=== PATIENT | female | born 1945 | race Caucasian/White ===

== ENCOUNTER 2019-04-03 22:00 | Inpatient (IN) | payer MEDICARE, OTHER ==
[2019-04-04] MEDS ORDERED: Maalox 30 mL Cup PO PRN (05:01)
[2019-04-04] MEDS ORDERED: Magnesium Hydroxide (MOM) 30 mL UDC PO PRN ×2 (05:01→07:57)
[2019-04-04] MEDS ORDERED: POLYETHYLENE GLYCOL 3350 17 GM PACK PO PRN (07:57)
--- NOTE | 2019-04-04 08:53 | History & Physical ---
ADMIT DATE: 04/04/2019 CHIEF COMPLAINT: Psychosis and paranoia. HISTORY OF PRESENT ILLNESS: This is a 74-year-old female who was living in an assisted living facility and then transferred to [facility] for medical clearance. Per report, the patient has increased agitation and psychosis with ongoing auditory hallucinations and paranoid delusions. Per paperwork, the patient is currently receiving antibiotics for urinary tract infection in assisted living facility. Once medically cleared from [facility], the patient was given respirations for ciprofloxacin 500 mg twice a day for 10 days. Hence once medically stable, the patient was transferred to [facility] for further psychiatric management. REVIEW OF SYSTEMS: GENERAL: This is a 74-year-old female. No fever. No weakness. HEAD: No headache. No dizziness. EYES: No eye pain or blurring of vision. NECK: No neck pain or nuchal rigidity. CHEST: No chest pain or palpitation. PULMONARY: No coughing. No shortness of breath. GASTROINTESTINAL: No abdominal. No constipation. No diarrhea. MUSCULOSKELETAL: No joint pain. No muscle pain. SOCIAL HISTORY: The patient lived in assisted living facility prior to hospitalization. FAMILY HISTORY: Unremarkable. PAST SURGICAL HISTORY: Unremarkable. PAST MEDICAL HISTORY: Includes hypertension, diabetes. PSYCHIATRIC HISTORY: Includes possible schizophrenia. PHYSICAL EXAMINATION: VITAL SIGNS: Temperature 97, heart rate 70, blood pressure 130/75, respirations 20, 96% on room air. GENERAL: This is a 74-year-old female who appears as stated, in no acute distress. HEENT: Head is atraumatic and normocephalic. Eyes: Bilateral conjunctivae are clear. Bilateral pupils are equally round and reactive. NECK: Supple. No JVD. CARDIOVASCULAR: S1 and S2, without murmur. LUNGS: Clear to auscultation. GASTROINTESTINAL: Soft and nontender without guarding. Positive bowel sounds. MUSCULOSKELETAL: No clubbing. No cyanosis noted. ASSESSMENT: 1. Schizophrenia. 2. Hypertension. 3. Diabetes. PLAN: We will admit the patient to Psychiatric Unit. We will follow up with psychiatrist to monitor the patient's condition and behavior. We will do medication reconciliation accordingly. We will continue ciprofloxacin 500 mg x 10 days twice a day for urinary tract infection. We will do local skin care. Treatment plans were discussed with the patient's nurse. Treatment plans were discussed with Dr. Schuster. JOB# [id number]
[2019-04-04] MEDS: Multivitamin Tab PO SCH (10:08)
[2019-04-04] MEDS: Lactobacillus Rhamnosus GG 15 Billion CFU CAP.SPRINK PO SCH (12:26)
[2019-04-04] MEDS: INSULIN LISPRO SLIDING SCALE 100 UNITS/ML UNIT SUBQ SCH ×3 (12:37→21:44)
--- NOTE | 2019-04-04 13:56 | History & Physical ---
ADMIT DATE: 04/04/2019 IDENTIFYING INFORMATION: The patient is 74 years old female. HISTORY OF PRESENT ILLNESS: The patient was admitted after being transferred from [facility]. She is living in an assisted living facility and then transferred to [facility] . She has increased agitation, psychosis, ongoing auditory hallucinations and paranoia. The patient was receiving antibiotic for urinary tract infection in the assisted living. The patient was given treatment for Cipro. When I talked to her, she was very pleasant and cooperative. 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 She said "I'm in a special home." She is not sure why. She said she is here to regulate her medication. She reports she cannot move or walk. She believes this is 04/07/1999. She is somewhat confused. She has been feeling down and depressed. She says she saw a psychiatrist a long time go after her brother back in 2007. She denies prior suicide attempt. She said that she is on medication for depression. She says she takes Nardil given by a psychiatrist. She is not sure what the name of the psychiatrist. She said she has not been sleeping well, decreased appetite. She lost 103 pounds in 4-5 months. She currently weighs 227 pounds. She is able to remember the president being Juany before him. She denies any current intent to harm herself or anyone. She denies any auditory or visual hallucinations. She is very pleasant and cooperative. MEDICATIONS: The patient is currently on Risperdal 1 mg twice a day ordered by Dr. Hills. MEDICAL HISTORY: As per medical doctor. ALLERGIES: THE PATIENT IS ALLERGIC TO CODEINE, IODINE CONTAINING PRODUCTS. FAMILY AND SOCIAL HISTORY: The patient reports she has been for 11 years, was for 10 years. She was twice. She has no children. 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 She is retired for 10 years because she could not work because of diabetes mellitus and neuropathy. She denies substance abuse, denies family psychiatric disorder. MENTAL STATUS EXAMINATION: The patient is appropriately dressed, not very groomed. Mood is depressed. She was pleasant, cooperative. She was alert. She believes this is 04/07/1999, not sure of the date. She believes she was 75 when in reality, she is 74 according to the records. She denies any other visual hallucination or paranoia. Denies any intent to harm anyone. She seems to have average intelligence by her being a mitigation supervisor knowing the current president being Juany was before him; however, she is not sure of the date. Short term memory is poor, does not know exactly why she is here. She denies any intent to harm herself or anyone. Denies any auditory or visual hallucinations. Insight and judgment is impaired. IMPRESSION: Major depression, recurrent with psychosis, rule out bipolar disorder. MEDICAL DIAGNOSIS: As per medical doctor. ASSETS: She is accepting treatment. Negative poor coping skills. INITIAL TREATMENT PLAN: The patient will be started on Risperdal 1 mg twice daily ordered by Dr. Hills. We have not given her any medications. She reports she has been on phenelzine, which is contraindicated. We will do group therapy, milieu therapy and individual therapy. ESTIMATED LENGTH OF STAY: 3-7 days. DISCHARGE CRITERIA: Decreasing depression, psychosis. After discharge, outpatient treatment. JOB# [id number] [facility]
[2019-04-04] MEDS: Insulin Glargine 100 units/ml 10ml Vial SUBQ SCH (21:43)
[2019-04-05] MEDS: INSULIN LISPRO SLIDING SCALE 100 UNITS/ML UNIT SUBQ SCH ×4 (07:03→21:44)
[2019-04-05] MEDS: Multivitamin Tab PO SCH (10:00)
[2019-04-05] MEDS: Lactobacillus Rhamnosus GG 15 Billion CFU CAP.SPRINK PO SCH (10:00)
--- NOTE | 2019-04-05 10:51 | Internal Medicine Prog Note ---
Internal Medicine Subjective - Subjective Patient seen and examined:: with staff Patient is:: awake, verbal, interactive, in bed Per staff patient has:: no adverse event, no episodes of fall, other (selective with medications) Internal Medicine Objective - Results Recent Labs: Laboratory Last Values POC Glucose 238 MG/DL (70 - 105) H 04/04/19 16:53 - Physical Exam Vitals and I&O: Vital Signs Temp 97.1 F 04/05/19 06:52 Pulse 88 04/05/19 06:52 Resp 18 04/05/19 08:00 BP 173/76 04/05/19 06:52 Pulse Ox 96 04/05/19 06:52 Intake & Output 04/04/19 04/05/19 04/05/19 18:59 06:59 18:59 Intake Total 240 Output Total 1 Balance 239 Intake: Oral 240 Output: Urine/Stool Mix 1 Other: # Voids 1 Active Medications: Current Medications Acetaminophen (Tylenol) 650 mg PO Q6HR PRN PRN Reason: Pain (Mild 1-3) Stop: 06/03/19 07:56 Al Hydrox/Mg Hydrox/Simethicone (Maalox) 30 ml PO Q4HR PRN PRN Reason: GI DISTRESS Stop: 06/03/19 05:00 Aspirin (Ecotrin) 81 mg PO DAILY [facility] Stop: 06/03/19 08:59 Last Admin: 04/04/19 10:08 Dose: 81 mg Bisacodyl (Dulcolax 10 Mg Supp) 10 mg RC DAILY PRN PRN Reason: Constipation Stop: 06/03/19 07:56 Carvedilol (Coreg) 6.25 mg PO BID [facility] Stop: 06/03/19 08:59 Last Admin: 04/04/19 17:55 Dose: 6.25 mg Docusate Sodium (Colace) 100 mg PO BID [facility] Stop: 06/03/19 08:59 Last Admin: 04/04/19 17:41 Dose: 100 mg Hydralazine HCl (Apresoline) 25 mg PO Q8HR PRN PRN Reason: HTN Stop: 06/03/19 07:56 Last Admin: 04/05/19 06:19 Dose: 25 mg Insulin Glargine (Lantus Insulin) 25 units SUBQ HS [facility] Stop: 06/03/19 20:59 Last Admin: 04/04/19 21:43 Dose: Not Given Insulin Human Lispro (Humalog Insulin Sliding Scale) 0 units SUBQ ACHS [facility]; Protocol Stop: 06/03/19 11:29 Last Admin: 04/05/19 07:03 Dose: 2 units Lactobacillus Rhamnosus (Culturelle 15b) 1 each PO DAILY [facility] Stop: 06/03/19 08:59 Last Admin: 04/04/19 12:26 Dose: Not Given Lorazepam (Ativan) 0.5 mg PO Q4HR PRN; Protocol PRN Reason: Anxiety Stop: 05/04/19 05:00 Losartan Potassium (Cozaar) 100 mg PO DAILY [facility] Stop: 06/03/19 08:59 Last Admin: 04/04/19 12:27 Dose: Not Given Magnesium Hydroxide (Milk Of Magnesia) 30 ml PO TID PRN PRN Reason: GI DISTRESS Multivitamins/Vitamin C (Theragran) 1 tab PO DAILY [facility] Stop: 06/03/19 08:59 Last Admin: 04/04/19 10:08 Dose: 1 tab Polyethylene Glycol (Miralax) 17 gm PO DAILY PRN PRN Reason: Constipation Stop: 06/03/19 07:56 Risperidone (Risperdal) 1 mg PO BID [facility]; Protocol Stop: 06/03/19 08:59 Last Admin: 04/04/19 17:41 Dose: 1 mg Senna (Senna) 8.6 mg PO DAILY [facility] Stop: 06/03/19 08:59 Last Admin: 04/04/19 10:08 Dose: 8.6 mg Simethicone (Mylicon) 80 mg PO Q6HR PRN PRN Reason: Gas Stop: 06/03/19 07:56 Zolpidem Tartrate (Ambien) 5 mg PO HS PRN PRN Reason: Insomnia Stop: 06/03/19 05:00 General: weak, NAD HEENT: NC/AT, PERRLA Neck: Supple, No JVD Lungs: other (no acute respiratory distress on RA) Cardiovascular: RRR Abdomen: soft, non-tender, non-distended Other physical findings: Documented images in chart and assessed by Danita Osuna R index toe scab R middle toe scab L big toe scab off when sock was removed L index toe scab off when sock was removed Bilateral buttock excoriation, redness RLQ red pen point dot L abd fold erythema BLE legs erythema Internal Medicine Assmt/Plan - Assessment Assessment: Schizophrenia HTN DM - Plan Plan: Continue current treatment plan. Continue current medications Continue to monitor VS Monitor Diet/Nutritional support. Psych management per Psychiatry. Pain Management. PT/OT prn Safety precaution, Fall precaution, frequent nursing round. Supportive care. Continue collaborating with consulting specialists, case management and nursing team Wound/Skin care as needed
--- NOTE | 2019-04-05 15:35 | Progress Notes ---
DATE: 04/05/2019 Case was discussed with staff of the patient, reviewed records. The patient was able to remember me. She continues to be depressed, overwhelmed, and confused, but in general, she is cooperative and pleasant. She believes she is here to regulate her medication, has been compliant with the medication with no side effects, no sedation or nausea, no extrapyramidal symptoms. We will continue outpatient group therapy, milieu therapy, adjust the medication as needed. JOB# [id number]
[2019-04-05] MEDS: Insulin Glargine 100 units/ml 10ml Vial SUBQ SCH (21:43)
[2019-04-06] MEDS: INSULIN LISPRO SLIDING SCALE 100 UNITS/ML UNIT SUBQ SCH ×4 (07:02→21:29)
[2019-04-06] MEDS: Multivitamin Tab PO SCH (08:24)
[2019-04-06] MEDS: Lactobacillus Rhamnosus GG 15 Billion CFU CAP.SPRINK PO SCH (08:24)
--- NOTE | 2019-04-06 09:26 | Progress Notes ---
DATE: 04/06/2019 SUBJECTIVE: Chart was reviewed and the patient interviewed. Also discussed the patient's condition with the staff and reviewed records and labs. "I miss my family." The patient said that she has not been seeing her family for a while. The patient also said that she has been feeling depressed and sad. The patient also complaining of difficulty sleeping at night, but at the same time, she is complaining of feeling sleepy during the day with Risperdal. She is still feeling hopeless and helpless, but she denies any intention to harm herself or others. ASSESSMENT: The patient is still depressed, but not psychotic. TREATMENT PLAN: We will continue to monitor her behavior and her condition closely. Also, we will decrease Risperdal to 1 mg at bedtime. Also, we will add Lexapro in a dose of 5 mg every morning to help with her ineffective coping and her severe level of depression. Also, we will monitor her sleep pattern and we will work on her sleep if decrease of Risperdal does not help her not to be sleepy during the day and to sleep better at night, then we will add trazodone, but at the same time, we will keep as is for the time being. JOB# [id number]
--- NOTE | 2019-04-06 09:39 | Internal Medicine Prog Note ---
Internal Medicine Subjective - Subjective Service Date: 04/06/19 Patient seen and examined:: with staff Patient is:: awake, verbal, interactive, in bed, confused Patient Complaints of:: other (History of Htn and Diabetes.) Per staff patient has:: no adverse event, no episodes of fall, other (selective with medications) Internal Medicine Objective - Results Recent Labs: Laboratory Last Values POC Glucose 233 MG/DL (70 - 105) H 04/05/19 20:07 - Physical Exam Vitals and I&O: Vital Signs Temp 98.6 F 04/06/19 06:52 Pulse 82 04/06/19 08:26 Resp 19 04/06/19 06:52 BP 111/83 04/06/19 08:26 Pulse Ox 96 04/06/19 06:52 Intake & Output 04/05/19 04/06/19 04/06/19 18:59 06:59 18:59 Intake Total 1200 180 Balance 1200 180 Intake: Oral 1200 180 Other: # Voids 5 3 # Bowel Movements 1 0 Active Medications: Current Medications Acetaminophen (Tylenol) 650 mg PO Q6HR PRN PRN Reason: Pain (Mild 1-3) Stop: 06/03/19 07:56 Al Hydrox/Mg Hydrox/Simethicone (Maalox) 30 ml PO Q4HR PRN PRN Reason: GI DISTRESS Stop: 06/03/19 05:00 Aspirin (Ecotrin) 81 mg PO DAILY [facility] Stop: 06/03/19 08:59 Last Admin: 04/06/19 08:24 Dose: 81 mg Bisacodyl (Dulcolax 10 Mg Supp) 10 mg RC DAILY PRN PRN Reason: IF MIRALAX INEFFECTIVE Stop: 06/03/19 07:56 Carvedilol (Coreg) 6.25 mg PO BID [facility] Stop: 06/03/19 08:59 Last Admin: 04/06/19 08:26 Dose: 6.25 mg Docusate Sodium (Colace) 100 mg PO BID [facility] Stop: 06/03/19 08:59 Last Admin: 04/06/19 08:24 Dose: 100 mg Escitalopram Oxalate (Lexapro) 5 mg PO HS [facility]; Protocol Stop: 06/05/19 20:59 Hydralazine HCl (Apresoline) 25 mg PO Q8HR PRN PRN Reason: HTN Stop: 06/03/19 07:56 Last Admin: 04/06/19 07:04 Dose: 25 mg Insulin Glargine (Lantus Insulin) 25 units SUBQ HS [facility] Stop: 06/03/19 20:59 Last Admin: 04/05/19 21:43 Dose: Not Given Insulin Human Lispro (Humalog Insulin Sliding Scale) 0 units SUBQ ACHS [facility]; Protocol Stop: 06/03/19 11:29 Last Admin: 04/06/19 07:02 Dose: 2 units Lactobacillus Rhamnosus (Culturelle 15b) 1 each PO DAILY [facility] Stop: 06/03/19 08:59 Last Admin: 04/06/19 08:24 Dose: 1 each Lorazepam (Ativan) 0.5 mg PO Q4HR PRN; Protocol PRN Reason: Anxiety Stop: 05/04/19 05:00 Losartan Potassium (Cozaar) 100 mg PO DAILY [facility] Stop: 06/03/19 08:59 Last Admin: 04/06/19 08:25 Dose: 100 mg Magnesium Hydroxide (Milk Of Magnesia) 30 ml PO TID PRN PRN Reason: GI DISTRESS Multivitamins/Vitamin C (Theragran) 1 tab PO DAILY [facility] Stop: 06/03/19 08:59 Last Admin: 04/06/19 08:24 Dose: 1 tab Mupirocin (Bactroban Oint) 1 appl NS BID [facility] Stop: 04/10/19 17:01 Last Admin: 04/06/19 09:24 Dose: 1 appl Polyethylene Glycol (Miralax) 17 gm PO DAILY PRN PRN Reason: Constipation Stop: 06/03/19 07:56 Risperidone (Risperdal) 1 mg PO HS [facility]; Protocol Stop: 06/05/19 20:59 Senna (Senna) 8.6 mg PO DAILY [facility] Stop: 06/03/19 08:59 Last Admin: 04/06/19 08:25 Dose: 8.6 mg Simethicone (Mylicon) 80 mg PO Q6HR PRN PRN Reason: Gas Stop: 06/03/19 07:56 Zolpidem Tartrate (Ambien) 5 mg PO HS PRN PRN Reason: Insomnia Stop: 06/03/19 05:00 Physical Exam: Patient needs close monitoring, patient is very delusional and in depressed mood. General: weak, demented, NAD HEENT: NC/AT, PERRLA Neck: Supple, No JVD Lungs: other (no acute respiratory distress on RA) Cardiovascular: RRR Abdomen: soft, non-tender, non-distended Extremities: rash Neurological: no change Internal Medicine Assmt/Plan - Assessment Assessment: UTI. Psychosis. Paranoia. Depression. Hypertension. Diabetes Mellitus. Schizophrenia. - Plan Plan: Psych management as per Psych. Continue present meds as directed. Accu-check daily, diabetic low sodium diet/nutritional support. Monitor vitals and labs. Fall precaution. Local skin care. Continue current treatment plan. Nutritional Asmnt/Malnutr-PDOC - Dietary Evaluation Malnutrition Findings (Please click <Entered> for more info): see orders.
--- NOTE | 2019-04-06 10:27 | Internal Medicine Prog Note ---
Internal Medicine Subjective - Subjective Patient is:: awake, verbal, interactive, in bed, confused Patient Complaints of:: other (History of Htn and Diabetes.) Per staff patient has:: no adverse event, no episodes of fall, other (selective with medications) Internal Medicine Objective - Results Recent Labs: Laboratory Last Values POC Glucose 233 MG/DL (70 - 105) H 04/05/19 20:07 - Physical Exam Vitals and I&O: Vital Signs Temp 98.6 F 04/06/19 06:52 Pulse 82 04/06/19 08:26 Resp 19 04/06/19 06:52 BP 111/83 04/06/19 08:26 Pulse Ox 96 04/06/19 06:52 Intake & Output 04/05/19 04/06/19 04/06/19 18:59 06:59 18:59 Intake Total 1200 180 Balance 1200 180 Intake: Oral 1200 180 Other: # Voids 5 3 # Bowel Movements 1 0 Active Medications: Current Medications Acetaminophen (Tylenol) 650 mg PO Q6HR PRN PRN Reason: Pain (Mild 1-3) Stop: 06/03/19 07:56 Al Hydrox/Mg Hydrox/Simethicone (Maalox) 30 ml PO Q4HR PRN PRN Reason: GI DISTRESS Stop: 06/03/19 05:00 Aspirin (Ecotrin) 81 mg PO DAILY [facility] Stop: 06/03/19 08:59 Last Admin: 04/06/19 08:24 Dose: 81 mg Bisacodyl (Dulcolax 10 Mg Supp) 10 mg RC DAILY PRN PRN Reason: IF MIRALAX INEFFECTIVE Stop: 06/03/19 07:56 Carvedilol (Coreg) 6.25 mg PO BID [facility] Stop: 06/03/19 08:59 Last Admin: 04/06/19 08:26 Dose: 6.25 mg Docusate Sodium (Colace) 100 mg PO BID [facility] Stop: 06/03/19 08:59 Last Admin: 04/06/19 08:24 Dose: 100 mg Escitalopram Oxalate (Lexapro) 5 mg PO HS [facility]; Protocol Stop: 06/05/19 20:59 Hydralazine HCl (Apresoline) 25 mg PO Q8HR PRN PRN Reason: HTN Stop: 06/03/19 07:56 Last Admin: 01/20/20 07:04 Dose: 25 mg Insulin Glargine (Lantus Insulin) 25 units SUBQ HS [facility] Stop: 06/03/19 20:59 Last Admin: 04/05/19 21:43 Dose: Not Given Insulin Human Lispro (Humalog Insulin Sliding Scale) 0 units SUBQ ACHS [facility]; Protocol Stop: 06/03/19 11:29 Last Admin: 04/06/19 07:02 Dose: 2 units Lactobacillus Rhamnosus (Culturelle 15b) 1 each PO DAILY [facility] Stop: 06/03/19 08:59 Last Admin: 04/06/19 08:24 Dose: 1 each Lorazepam (Ativan) 0.5 mg PO Q4HR PRN; Protocol PRN Reason: Anxiety Stop: 05/04/19 05:00 Losartan Potassium (Cozaar) 100 mg PO DAILY [facility] Stop: 06/03/19 08:59 Last Admin: 04/06/19 08:25 Dose: 100 mg Magnesium Hydroxide (Milk Of Magnesia) 30 ml PO TID PRN PRN Reason: GI DISTRESS Multivitamins/Vitamin C (Theragran) 1 tab PO DAILY [facility] Stop: 06/03/19 08:59 Last Admin: 04/06/19 08:24 Dose: 1 tab Mupirocin (Bactroban Oint) 1 appl NS BID [facility] Stop: 04/10/19 17:01 Last Admin: 04/06/19 09:24 Dose: 1 appl Polyethylene Glycol (Miralax) 17 gm PO DAILY PRN PRN Reason: Constipation Stop: 06/03/19 07:56 Risperidone (Risperdal) 1 mg PO HS [facility]; Protocol Stop: 06/05/19 20:59 Senna (Senna) 8.6 mg PO DAILY [facility] Stop: 06/03/19 08:59 Last Admin: 04/06/19 08:25 Dose: 8.6 mg Simethicone (Mylicon) 80 mg PO Q6HR PRN PRN Reason: Gas Stop: 06/03/19 07:56 Zolpidem Tartrate (Ambien) 5 mg PO HS PRN PRN Reason: Insomnia Stop: 06/03/19 05:00 General: weak, demented, NAD HEENT: NC/AT, PERRLA Neck: Supple, No JVD Lungs: other (no acute respiratory distress on RA) Cardiovascular: RRR Abdomen: soft, non-tender, non-distended Extremities: rash Neurological: no change Other physical findings: Documented images in chart and assessed by Danita Osuna R index toe scab R middle toe scab L big toe scab off when sock was removed on 04/05/2019 L index toe scab off when sock was removed on 04/05/2019 Bilateral buttock excoriation, redness RLQ red pen point dot L abd fold erythema BLE legs erythema Internal Medicine Assmt/Plan - Assessment Assessment: Schizophrenia HTN DM - Plan Plan: Continue current treatment plan. Continue current medications Continue to monitor VS Monitor Diet/Nutritional support. Psych management per Psychiatry. Pain Management. PT/OT prn Safety precaution, Fall precaution, frequent nursing round. Supportive care. Continue collaborating with consulting specialists, case management and nursing team Wound/Skin care as needed
[2019-04-06] MEDS: Escitalopram Oxalate 5 mg Tab PO SCH (21:29)
[2019-04-06] MEDS: Insulin Glargine 100 units/ml 10ml Vial SUBQ SCH (21:29)
[2019-04-07] MEDS: INSULIN LISPRO SLIDING SCALE 100 UNITS/ML UNIT SUBQ SCH ×4 (06:48→21:12)
--- NOTE | 2019-04-07 07:35 | Progress Notes ---
DATE: SUBJECTIVE: Chart was reviewed and the patient interviewed. Also discussed the patient's condition with the staff and reviewed records and labs. The patient still has labile affect and she is still in a depressed mood. The patient also is still suspicious and is still paranoid and also is guarded and withdrawn. The patient also refused to take psychotropic medications and refused to take Lexapro or Risperdal, saying that she does not need any psychotropic medications. Also, still uncooperative with the staff and refusing help and treatment in regard to their cleaning her or helping her with her ADLs. At the same time, she continued to be guarded and withdrawn and demanding at times. ASSESSMENT: The patient is still depressed and slightly psychotic. TREATMENT PLAN: Continue to monitor behavior and condition closely. Also, continue to work on discharge plans and on placement issue. JOB# [id number]
[2019-04-07] MEDS: Multivitamin Tab PO SCH (09:14)
[2019-04-07] MEDS: Lactobacillus Rhamnosus GG 15 Billion CFU CAP.SPRINK PO SCH (09:14)
[2019-04-07] MEDS ORDERED: Maalox 30 mL Cup PO PRN (10:17)
[2019-04-07] MEDS: Escitalopram Oxalate 5 mg Tab PO SCH (21:11)
[2019-04-07] MEDS: Insulin Glargine 100 units/ml 10ml Vial SUBQ SCH (21:12)
[2019-04-08] MEDS: INSULIN LISPRO SLIDING SCALE 100 UNITS/ML UNIT SUBQ SCH ×4 (06:56→20:57)
[2019-04-08] MEDS: Multivitamin Tab PO SCH (09:00)
[2019-04-08] MEDS: Lactobacillus Rhamnosus GG 15 Billion CFU CAP.SPRINK PO SCH (09:05)
--- NOTE | 2019-04-08 16:17 | Internal Medicine Prog Note ---
Internal Medicine Subjective - Subjective Service Date: 04/08/19 Patient is:: awake, verbal, interactive, in bed, confused Patient Complaints of:: other (History of Htn and Diabetes.) Per staff patient has:: no adverse event, no episodes of fall, other (selective with medications) Internal Medicine Objective - Results Recent Labs: Laboratory Last Values POC Glucose 214 MG/DL (70 - 105) H 04/08/19 06:01 - Physical Exam Vitals and I&O: Vital Signs Temp 97.6 F 04/08/19 14:00 Pulse 98 04/08/19 14:00 Resp 18 04/08/19 14:00 BP 159/73 04/08/19 14:00 Pulse Ox 95 04/08/19 14:00 Intake & Output 04/07/19 04/08/19 04/08/19 18:59 06:59 18:59 Intake Total 1500 120 Balance 1500 120 Intake: Oral 1500 120 Other: # Voids 3 1 # Bowel Movements 0 0 Active Medications: Current Medications Acetaminophen (Tylenol) 650 mg PO Q6HR PRN PRN Reason: Pain (Mild 1-3) Stop: 06/03/19 07:56 Al Hydrox/Mg Hydrox/Simethicone (Maalox) 30 ml PO Q4HR PRN PRN Reason: GI DISTRESS Stop: 06/03/19 05:00 Aspirin (Ecotrin) 81 mg PO DAILY [facility] Stop: 06/03/19 08:59 Last Admin: 04/08/19 09:06 Dose: 81 mg Bisacodyl (Dulcolax 10 Mg Supp) 10 mg RC DAILY PRN PRN Reason: IF MIRALAX INEFFECTIVE Stop: 06/03/19 07:56 Carvedilol (Coreg) 6.25 mg PO BID [facility] Stop: 06/03/19 08:59 Last Admin: 04/08/19 09:06 Dose: 6.25 mg Docusate Sodium (Colace) 100 mg PO BID [facility] Stop: 06/03/19 08:59 Last Admin: 04/08/19 09:05 Dose: 100 mg Escitalopram Oxalate (Lexapro) 5 mg PO HS [facility]; Protocol Stop: 06/05/19 20:59 Last Admin: 04/07/19 21:11 Dose: 5 mg Hydralazine HCl (Apresoline) 25 mg PO Q8HR PRN PRN Reason: HTN Stop: 06/03/19 07:56 Last Admin: 04/07/19 15:54 Dose: 25 mg Insulin Glargine (Lantus Insulin) 25 units SUBQ HS [facility] Stop: 06/03/19 20:59 Last Admin: 04/07/19 21:12 Dose: 25 ud Insulin Human Lispro (Humalog Insulin Sliding Scale) 0 units SUBQ ACHS [facility]; Protocol Stop: 06/03/19 11:29 Last Admin: 04/08/19 14:02 Dose: Not Given Lactobacillus Rhamnosus (Culturelle 15b) 1 each PO DAILY [facility] Stop: 06/03/19 08:59 Last Admin: 04/08/19 09:05 Dose: 1 each Lorazepam (Ativan) 0.5 mg PO Q4HR PRN; Protocol PRN Reason: Anxiety Stop: 05/04/19 05:00 Losartan Potassium (Cozaar) 100 mg PO DAILY [facility] Stop: 06/03/19 08:59 Last Admin: 04/08/19 09:07 Dose: 100 mg Magnesium Hydroxide (Milk Of Magnesia) 30 ml PO TID PRN PRN Reason: GI DISTRESS Multivitamins/Vitamin C (Theragran) 1 tab PO DAILY [facility] Stop: 06/03/19 08:59 Last Admin: 04/08/19 09:00 Dose: 1 tab Mupirocin (Bactroban Oint) 1 appl NS BID [facility] Stop: 04/10/19 17:01 Last Admin: 04/08/19 14:17 Dose: 1 appl Nystatin (Nystop) 0 units TP BID [facility] Stop: 06/07/19 16:59 Polyethylene Glycol (Miralax) 17 gm PO DAILY PRN PRN Reason: Constipation Stop: 06/03/19 07:56 Risperidone 1 mg/ Risperidone (0.5 mg) 1.5 mg PO HS [facility] Stop: 06/07/19 20:59 Senna (Senna) 8.6 mg PO DAILY [facility] Stop: 06/03/19 08:59 Last Admin: 04/08/19 09:00 Dose: 8.6 mg Simethicone (Mylicon) 80 mg PO Q6HR PRN PRN Reason: Gas Stop: 06/03/19 07:56 Zolpidem Tartrate (Ambien) 5 mg PO HS PRN PRN Reason: Insomnia Stop: 06/03/19 05:00 General: weak, demented, NAD HEENT: NC/AT, PERRLA Neck: Supple, No JVD Lungs: other (no acute respiratory distress on RA) Cardiovascular: RRR Abdomen: soft, non-tender, non-distended Extremities: rash Neurological: no change Internal Medicine Assmt/Plan - Assessment Assessment: Schizophrenia HTN DM - Plan Plan: Continue current treatment plan. Continue current medications Continue to monitor VS Monitor Diet/Nutritional support. Psych management per Psychiatry. Pain Management. PT/OT prn Safety precaution, Fall precaution, frequent nursing round. Supportive care. Continue collaborating with consulting specialists, case management and nursing team Wound/Skin care as needed
[2019-04-08] MEDS: NYSTATIN 100000 UNITS/GM POWD TP SCH (17:35)
[2019-04-08] MEDS: Escitalopram Oxalate 5 mg Tab PO SCH (20:56)
[2019-04-08] MEDS: Insulin Glargine 100 units/ml 10ml Vial SUBQ SCH (20:57)
--- NOTE | 2019-04-08 22:00 | Progress Notes ---
DATE: 04/08/2019 SUBJECTIVE: Chart reviewed and the patient interviewed. Also discussed the patient's condition with the staff, and reviewed records and labs. The patient is still forgetful and she is still in a depressed mood. The patient also is guarded and is withdrawn. Her interaction with others is minimum. She also seems to be suspicious and paranoid. The patient also is selective with her medications, but the patient did take her Risperdal and Lexapro with no side effects. ASSESSMENT: The patient is still confused, and is still paranoid and depressed. TREATMENT PLAN: Continue Lexapro 5 mg every day and we will increase Risperdal to 1.5 mg at bedtime, and continue to follow up. [facility]# [id number]
[2019-04-09] MEDS: INSULIN LISPRO SLIDING SCALE 100 UNITS/ML UNIT SUBQ SCH ×4 (06:47→20:47)
[2019-04-09] MEDS: Lactobacillus Rhamnosus GG 15 Billion CFU CAP.SPRINK PO SCH (08:30)
[2019-04-09] MEDS: Multivitamin Tab PO SCH (08:30)
[2019-04-09] MEDS: NYSTATIN 100000 UNITS/GM POWD TP SCH ×2 (08:41→17:48)
--- NOTE | 2019-04-09 15:57 | Internal Medicine Prog Note ---
Internal Medicine Subjective - Subjective Service Date: 04/09/19 Patient is:: awake, verbal, interactive, in bed, confused Patient Complaints of:: other (History of Htn and Diabetes.) Per staff patient has:: no adverse event, no episodes of fall, other (selective with medications) Internal Medicine Objective - Results Recent Labs: Laboratory Last Values POC Glucose 198 MG/DL (70 - 105) H 04/09/19 11:27 - Physical Exam Vitals and I&O: Vital Signs Temp 97.1 F 04/09/19 07:27 Pulse 86 04/09/19 08:31 Resp 16 04/09/19 08:00 BP 174/86 04/09/19 08:31 Pulse Ox 96 04/09/19 07:27 Intake & Output 04/08/19 04/09/19 04/09/19 18:59 06:59 18:59 Intake Total 1320 120 120 Balance 1320 120 120 Intake: Oral 960 120 120 Other 360 Other: # Voids 3 2 2 # Bowel Movements 0 0 0 Active Medications: Current Medications Acetaminophen (Tylenol) 650 mg PO Q6HR PRN PRN Reason: Pain (Mild 1-3) Stop: 06/03/19 07:56 Al Hydrox/Mg Hydrox/Simethicone (Maalox) 30 ml PO Q4HR PRN PRN Reason: GI DISTRESS Stop: 06/03/19 05:00 Aspirin (Ecotrin) 81 mg PO DAILY [facility] Stop: 06/03/19 08:59 Last Admin: 04/09/19 08:30 Dose: 81 mg Bisacodyl (Dulcolax 10 Mg Supp) 10 mg RC DAILY PRN PRN Reason: IF MIRALAX INEFFECTIVE Stop: 06/03/19 07:56 Carvedilol (Coreg) 6.25 mg PO BID [facility] Stop: 06/03/19 08:59 Last Admin: 04/09/19 08:30 Dose: 6.25 mg Docusate Sodium (Colace) 100 mg PO BID [facility] Stop: 06/03/19 08:59 Last Admin: 04/09/19 08:30 Dose: 100 mg Escitalopram Oxalate (Lexapro) 5 mg PO HS [facility]; Protocol Stop: 06/05/19 20:59 Last Admin: 04/08/19 20:56 Dose: Not Given Hydralazine HCl (Apresoline) 25 mg PO Q8HR PRN PRN Reason: HTN Stop: 06/03/19 07:56 Last Admin: 04/08/19 21:50 Dose: 25 mg Insulin Glargine (Lantus Insulin) 25 units SUBQ HS [facility] Stop: 06/03/19 20:59 Last Admin: 04/08/19 20:57 Dose: Not Given Insulin Human Lispro (Humalog Insulin Sliding Scale) 0 units SUBQ ACHS [facility]; Protocol Stop: 06/03/19 11:29 Last Admin: 04/09/19 11:45 Dose: 2 units Lactobacillus Rhamnosus (Culturelle 15b) 1 each PO DAILY [facility] Stop: 06/03/19 08:59 Last Admin: 04/09/19 08:30 Dose: 1 each Lorazepam (Ativan) 0.5 mg PO Q4HR PRN; Protocol PRN Reason: Anxiety Stop: 05/04/19 05:00 Losartan Potassium (Cozaar) 100 mg PO DAILY [facility] Stop: 06/03/19 08:59 Last Admin: 04/09/19 08:31 Dose: 100 mg Magnesium Hydroxide (Milk Of Magnesia) 30 ml PO TID PRN PRN Reason: GI DISTRESS Multivitamins/Vitamin C (Theragran) 1 tab PO DAILY [facility] Stop: 06/03/19 08:59 Last Admin: 04/09/19 08:30 Dose: 1 tab Mupirocin (Bactroban Oint) 1 appl NS BID [facility] Stop: 04/10/19 17:01 Last Admin: 04/09/19 08:41 Dose: 1 appl Nystatin (Nystop) 0 units TP BID [facility] Stop: 06/07/19 16:59 Last Admin: 04/09/19 08:41 Dose: 100,000 units Polyethylene Glycol (Miralax) 17 gm PO DAILY PRN PRN Reason: Constipation Stop: 06/03/19 07:56 Risperidone 1 mg/ Risperidone (0.5 mg) 1.5 mg PO HS [facility] Stop: 06/07/19 20:59 Last Admin: 04/08/19 20:56 Dose: Not Given Senna (Senna) 8.6 mg PO DAILY [facility] Stop: 06/03/19 08:59 Last Admin: 04/09/19 08:30 Dose: 8.6 mg Simethicone (Mylicon) 80 mg PO Q6HR PRN PRN Reason: Gas Stop: 06/03/19 07:56 Zolpidem Tartrate (Ambien) 5 mg PO HS PRN PRN Reason: Insomnia Stop: 06/03/19 05:00 General: weak, demented, NAD HEENT: NC/AT, PERRLA Neck: Supple, No JVD Lungs: other (no acute respiratory distress on RA) Cardiovascular: RRR Abdomen: soft, non-tender, non-distended Extremities: rash Neurological: no change Internal Medicine Assmt/Plan - Assessment Assessment: Schizophrenia HTN DM - Plan Plan: Continue current treatment plan. Continue current medications Continue to monitor VS Monitor Diet/Nutritional support. Psych management per Psychiatry. Pain Management. PT/OT prn Safety precaution, Fall precaution, frequent nursing round. Supportive care. Continue collaborating with consulting specialists, case management and nursing team Wound/Skin care as needed
[2019-04-09] MEDS: Escitalopram Oxalate 5 mg Tab PO SCH ×2 (20:46→21:28)
[2019-04-09] MEDS: Insulin Glargine 100 units/ml 10ml Vial SUBQ SCH (20:49)
--- NOTE | 2019-04-09 22:55 | Progress Notes ---
DATE: 04/09/2019 SUBJECTIVE: Chart reviewed and the patient interviewed. Also discussed the patient's condition with the staff, and reviewed records and labs. The patient is still depressed and is still withdrawn. She is interacting minimally with peers and with others. The patient also is still forgetful and delusional, and needs redirections. The patient also is still argumentative. Also, the patient is still refusing her psychotropic medications, and she will not take Risperdal or Lexapro. ASSESSMENT: The patient is still psychotic, and is still confused and agitated. TREATMENT PLAN: Continue to monitor behavior and condition closely. Also, we will encourage the patient to comply with taking her psychotropic medications and we will continue to follow up. [facility]# [id number]
[2019-04-10] MEDS: INSULIN LISPRO SLIDING SCALE 100 UNITS/ML UNIT SUBQ SCH ×4 (06:52→21:00)
[2019-04-10] MEDS: Lactobacillus Rhamnosus GG 15 Billion CFU CAP.SPRINK PO SCH (08:52)
[2019-04-10] MEDS: Multivitamin Tab PO SCH (08:53)
[2019-04-10] MEDS: NYSTATIN 100000 UNITS/GM POWD TP SCH ×2 (08:53→16:21)
--- NOTE | 2019-04-10 10:40 | Progress Notes ---
DATE: SUBJECTIVE: Chart was reviewed and the patient interviewed. Also discussed the patient's condition with the staff and reviewed records and labs. The patient continued to be histrionic and has multiple somatic complaints. "I did not have bowel movements for 3 days." Also, "the diapers are too tight." The patient also said "I am too big and I need a big wheelchair." She continued to have multiple complaints and she is still isolating herself. She also is still selective with taking her medications, but last night she did take Risperdal and refused Lexapro. She is still uncooperative with the staff and is still at times resisting care. She is also still suspicious and paranoid. Otherwise, the patient has no major behavioral problems while in the unit. ASSESSMENT: The patient is still paranoid and anxious. TREATMENT PLAN: Continue to monitor behavior and condition closely. Also, we will monitor her physical condition and also her constipation, will give p.r.n. medications. At the same time, we will continue to work on her irritability and paranoia and her compliance with taking medications. [facility]# [id number]
--- NOTE | 2019-04-10 11:54 | Internal Medicine Prog Note ---
Internal Medicine Subjective - Subjective Patient is:: awake, verbal, interactive, in bed, confused Patient Complaints of:: other (History of Htn and Diabetes.) Per staff patient has:: no adverse event, no episodes of fall, other (selective with medications) Internal Medicine Objective - Results Recent Labs: Laboratory Last Values POC Glucose 159 MG/DL (70 - 105) H 04/10/19 06:38 - Physical Exam Vitals and I&O: Vital Signs Temp 97.2 F 04/10/19 06:08 Pulse 71 04/10/19 08:52 Resp 16 04/10/19 07:55 BP 167/64 04/10/19 08:52 Pulse Ox 96 04/10/19 06:08 Intake & Output 04/09/19 04/10/19 04/10/19 18:59 06:59 18:59 Intake Total 1120 240 Output Total 1 Balance 1120 239 Intake: Oral 1120 240 Output: Urine/Stool Mix 1 Other: # Voids 4 1 # Bowel Movements 1 Active Medications: Current Medications Acetaminophen (Tylenol) 650 mg PO Q6HR PRN PRN Reason: Pain (Mild 1-3) Stop: 06/03/19 07:56 Al Hydrox/Mg Hydrox/Simethicone (Maalox) 30 ml PO Q4HR PRN PRN Reason: GI DISTRESS Stop: 06/03/19 05:00 Aspirin (Ecotrin) 81 mg PO DAILY [facility] Stop: 06/03/19 08:59 Last Admin: 04/10/19 08:50 Dose: 81 mg Bisacodyl (Dulcolax 10 Mg Supp) 10 mg RC DAILY PRN PRN Reason: IF MIRALAX INEFFECTIVE Stop: 06/03/19 07:56 Carvedilol (Coreg) 6.25 mg PO BID [facility] Stop: 06/03/19 08:59 Last Admin: 04/10/19 08:52 Dose: 6.25 mg Docusate Sodium (Colace) 100 mg PO BID [facility] Stop: 06/03/19 08:59 Last Admin: 04/10/19 08:52 Dose: 100 mg Escitalopram Oxalate (Lexapro) 5 mg PO HS [facility]; Protocol Stop: 06/05/19 20:59 Last Admin: 04/09/19 21:28 Dose: Not Given Hydralazine HCl (Apresoline) 25 mg PO Q8HR PRN PRN Reason: HTN Stop: 06/03/19 07:56 Last Admin: 04/08/19 21:50 Dose: 25 mg Insulin Glargine (Lantus Insulin) 25 units SUBQ HS [facility] Stop: 06/03/19 20:59 Last Admin: 04/09/19 20:49 Dose: Not Given Insulin Human Lispro (Humalog Insulin Sliding Scale) 0 units SUBQ ACHS [facility]; Protocol Stop: 06/03/19 11:29 Last Admin: 04/10/19 11:28 Dose: 4 units Lactobacillus Rhamnosus (Culturelle 15b) 1 each PO DAILY [facility] Stop: 06/03/19 08:59 Last Admin: 04/10/19 08:52 Dose: 1 each Lorazepam (Ativan) 0.5 mg PO Q4HR PRN; Protocol PRN Reason: Anxiety Stop: 05/04/19 05:00 Losartan Potassium (Cozaar) 100 mg PO DAILY [facility] Stop: 06/03/19 08:59 Last Admin: 04/10/19 08:50 Dose: 100 mg Magnesium Hydroxide (Milk Of Magnesia) 30 ml PO TID PRN PRN Reason: GI DISTRESS Multivitamins/Vitamin C (Theragran) 1 tab PO DAILY [facility] Stop: 06/03/19 08:59 Last Admin: 04/10/19 08:53 Dose: 1 tab Mupirocin (Bactroban Oint) 1 appl NS BID [facility] Stop: 04/10/19 17:01 Last Admin: 04/10/19 08:54 Dose: 1 appl Nystatin (Nystop) 0 units TP BID [facility] Stop: 06/07/19 16:59 Last Admin: 04/10/19 08:53 Dose: 100,000 units Polyethylene Glycol (Miralax) 17 gm PO DAILY PRN PRN Reason: Constipation Stop: 06/03/19 07:56 Risperidone 1 mg/ Risperidone (0.5 mg) 1.5 mg PO HS [facility] Stop: 06/07/19 20:59 Last Admin: 04/09/19 20:47 Dose: 1.5 mg Senna (Senna) 8.6 mg PO DAILY [facility] Stop: 06/03/19 08:59 Last Admin: 04/10/19 08:50 Dose: 8.6 mg Simethicone (Mylicon) 80 mg PO Q6HR PRN PRN Reason: Gas Stop: 06/03/19 07:56 Zolpidem Tartrate (Ambien) 5 mg PO HS PRN PRN Reason: Insomnia Stop: 06/03/19 05:00 General: weak, demented, NAD HEENT: NC/AT, PERRLA Neck: Supple, No JVD Lungs: other (no acute respiratory distress on RA) Cardiovascular: RRR Abdomen: soft, non-tender, non-distended Extremities: rash Neurological: no change Other physical findings: Documented images in chart and assessed by Danita Osuna R index toe scab R middle toe scab L big toe scab off L index toe scab off Bilateral buttock excoriation, redness RLQ red pen point dot L abd fold erythema BLE legs erythema Internal Medicine Assmt/Plan - Assessment Assessment: Schizophrenia HTN DM - Plan Plan: Continue current treatment plan. Continue current medications Continue to monitor VS Monitor Diet/Nutritional support. Psych management per Psychiatry. Pain Management. PT/OT prn Safety precaution, Fall precaution, frequent nursing round. Supportive care. Continue collaborating with consulting specialists, case management and nursing team Wound/Skin care as needed
[2019-04-10] MEDS: Insulin Glargine 100 units/ml 10ml Vial SUBQ SCH (21:00)
[2019-04-10] MEDS: Escitalopram Oxalate 5 mg Tab PO SCH (21:11)
[2019-04-11] MEDS: INSULIN LISPRO SLIDING SCALE 100 UNITS/ML UNIT SUBQ SCH ×4 (06:47→20:32)
--- NOTE | 2019-04-11 08:02 | Progress Notes ---
DATE: 04/11/2019 SUBJECTIVE: The patient was seen in her room. The patient is awake, episodes of agitation, refusing care. The patient still suspicious and paranoid and has episodes of somatic complaints. Otherwise, the patient appears to be in no acute distress. OBJECTIVE: VITAL SIGNS: Temperature 97.9, heart rate 77, blood pressure 167/73, respirations 20, 98% on room air. HEENT: Head is atraumatic and normocephalic. Eyes: Bilateral conjunctivae are clear. Bilateral pupils equally round and reactive. NECK: Supple. No JVD. CARDIOVASCULAR: S1 and S2, without murmur. PULMONARY: Clear to auscultation. GASTROINTESTINAL: Soft and nontender. Positive bowel sounds. MUSCULOSKELETAL: No clubbing. No cyanosis noted. ASSESSMENT: 1. Depression. 2. Rule out bipolar disorder. 3. Hypertension. 4. Diabetes. 5. Obesity. PLAN: We will continue to keep the patient to inpatient Psychiatric Unit. We will follow up with a psychiatrist to monitor the patient's condition and behavior: We will put the patient on fall precautions. We will put the patient on clonidine 0.1 mg every 8 hours as needed for systolic blood pressure above 160. Treatment plans were discussed with the patient's nurse. Treatment plans were discussed with Dr. Schuster. [facility]# [id number]
[2019-04-11] MEDS: NYSTATIN 100000 UNITS/GM POWD TP SCH ×2 (09:00→16:15)
[2019-04-11] MEDS: Multivitamin Tab PO SCH (09:11)
[2019-04-11] MEDS: Lactobacillus Rhamnosus GG 15 Billion CFU CAP.SPRINK PO SCH (09:11)
--- NOTE | 2019-04-11 19:42 | Progress Notes ---
DATE: SUBJECTIVE: Chart reviewed and patient interviewed. Also discussed patient's condition with the staff and reviewed records and labs. The patient is still selective with medications and the patient is still suspicious and paranoid. The patient refused to take Lexapro, but did take Risperdal yesterday. She also is still argumentative and her affect is still labile. The patient also said that she has bowel movements and it seemed that her complaining of constipation resolved. On the other hand, the patient still needs lots of redirections and prompt instructions. ASSESSMENT: The patient is still paranoid and anxious. TREATMENT PLAN: Continue Risperdal and encourage the patient to take Lexapro. Also, continue to monitor her behavior and continue to followup. [facility]# [id number]
[2019-04-11] MEDS: Escitalopram Oxalate 5 mg Tab PO SCH (20:20)
[2019-04-11] MEDS: Insulin Glargine 100 units/ml 10ml Vial SUBQ SCH (20:31)
[2019-04-12] MEDS: INSULIN LISPRO SLIDING SCALE 100 UNITS/ML UNIT SUBQ SCH ×4 (06:45→21:25)
[2019-04-12] MEDS: Lactobacillus Rhamnosus GG 15 Billion CFU CAP.SPRINK PO SCH (08:53)
[2019-04-12] MEDS: Multivitamin Tab PO SCH (08:53)
[2019-04-12] MEDS: NYSTATIN 100000 UNITS/GM POWD TP SCH ×2 (08:54→17:00)
[2019-04-12] MEDS: Escitalopram Oxalate 5 mg Tab PO SCH (21:09)
[2019-04-12] MEDS: Insulin Glargine 100 units/ml 10ml Vial SUBQ SCH (21:25)
--- NOTE | 2019-04-12 21:46 | Internal Medicine Prog Note ---
Internal Medicine Subjective - Subjective Patient is:: awake, verbal, interactive, in bed, confused Patient Complaints of:: other (History of Htn and Diabetes.) Per staff patient has:: no adverse event, no episodes of fall, other (selective with medications) Internal Medicine Objective - Results Recent Labs: Laboratory Last Values POC Glucose 244 MG/DL (70 - 105) H 04/12/19 20:39 - Physical Exam Vitals and I&O: Vital Signs Temp 97.4 F 04/12/19 20:44 Pulse 77 04/12/19 20:44 Resp 20 04/12/19 20:44 BP 166/79 04/12/19 20:44 Pulse Ox 98 04/12/19 20:44 Intake & Output 04/12/19 04/12/19 04/13/19 06:59 18:59 06:59 Intake Total 240 1000 240 Balance 240 1000 240 Intake: Oral 240 1000 240 Other: # Voids 1 5 2 # Bowel Movements 0 Active Medications: Current Medications Acetaminophen (Tylenol) 650 mg PO Q6HR PRN PRN Reason: Pain (Mild 1-3) Stop: 06/03/19 07:56 Al Hydrox/Mg Hydrox/Simethicone (Maalox) 30 ml PO Q4HR PRN PRN Reason: GI DISTRESS Stop: 06/03/19 05:00 Aspirin (Ecotrin) 81 mg PO DAILY [facility] Stop: 06/03/19 08:59 Last Admin: 04/12/19 08:53 Dose: 81 mg Bisacodyl (Dulcolax 10 Mg Supp) 10 mg RC DAILY PRN PRN Reason: IF MIRALAX INEFFECTIVE Stop: 06/03/19 07:56 Carvedilol (Coreg) 6.25 mg PO BID [facility] Stop: 06/03/19 08:59 Last Admin: 04/12/19 17:32 Dose: 6.25 mg Docusate Sodium (Colace) 100 mg PO BID [facility] Stop: 06/03/19 08:59 Last Admin: 04/12/19 17:32 Dose: 100 mg Escitalopram Oxalate (Lexapro) 5 mg PO HS [facility]; Protocol Stop: 06/05/19 20:59 Last Admin: 04/12/19 21:09 Dose: 5 mg Hydralazine HCl (Apresoline) 25 mg PO Q8HR PRN PRN Reason: HTN Stop: 06/03/19 07:56 Last Admin: 04/10/19 21:09 Dose: 25 mg Insulin Glargine (Lantus Insulin) 25 units SUBQ HS [facility] Stop: 06/03/19 20:59 Last Admin: 04/11/19 20:31 Dose: 25 units Insulin Human Lispro (Humalog Insulin Sliding Scale) 0 units SUBQ ACHS [facility]; Protocol Stop: 06/03/19 11:29 Last Admin: 04/12/19 16:35 Dose: Not Given Lactobacillus Rhamnosus (Culturelle 15b) 1 each PO DAILY [facility] Stop: 06/03/19 08:59 Last Admin: 04/12/19 08:53 Dose: 1 each Lorazepam (Ativan) 0.5 mg PO Q4HR PRN; Protocol PRN Reason: Anxiety Stop: 05/04/19 05:00 Losartan Potassium (Cozaar) 100 mg PO DAILY [facility] Stop: 06/03/19 08:59 Last Admin: 04/12/19 08:53 Dose: 100 mg Magnesium Hydroxide (Milk Of Magnesia) 30 ml PO TID PRN PRN Reason: GI DISTRESS Multivitamins/Vitamin C (Theragran) 1 tab PO DAILY [facility] Stop: 06/03/19 08:59 Last Admin: 04/12/19 08:53 Dose: 1 tab Nystatin (Nystop) 0 units TP BID [facility] Stop: 06/07/19 16:59 Last Admin: 04/12/19 17:00 Dose: 100,000 units Polyethylene Glycol (Miralax) 17 gm PO DAILY PRN PRN Reason: Constipation Stop: 06/03/19 07:56 Risperidone (Risperdal) 2 mg PO HS [facility] Stop: 06/10/19 20:59 Last Admin: 04/12/19 21:09 Dose: 2 mg Senna (Senna) 8.6 mg PO DAILY [facility] Stop: 06/03/19 08:59 Last Admin: 04/12/19 08:54 Dose: 8.6 mg Simethicone (Mylicon) 80 mg PO Q6HR PRN PRN Reason: Gas Stop: 06/03/19 07:56 Zolpidem Tartrate (Ambien) 5 mg PO HS PRN PRN Reason: Insomnia Stop: 06/03/19 05:00 General: weak, demented, NAD HEENT: NC/AT, PERRLA Neck: Supple, No JVD Lungs: other (no acute respiratory distress on RA) Cardiovascular: RRR Abdomen: soft, non-tender, non-distended Extremities: rash Neurological: no change Internal Medicine Assmt/Plan - Assessment Assessment: Schizophrenia HTN DM - Plan Plan: Continue current treatment plan. Continue current medications Continue to monitor VS Monitor Diet/Nutritional support. Psych management per Psychiatry. Pain Management. PT/OT prn Safety precaution, Fall precaution, frequent nursing round. Supportive care. Continue collaborating with consulting specialists, case management and nursing team Wound/Skin care as needed Nutritional Asmnt/Malnutr-PDOC - Dietary Evaluation Malnutrition Findings (Please click <Entered> for more info): Nutritional Asmnt/Malnutrition Start: 04/10/19 15: 40 Text: Status: Complete Freq: Protocol: Document 04/10/19 15:40 JASMIN (Rec: 04/10/19 15:43 [id number]) Nutritional Asmnt/Malnutrition Patient General Information Nutritional Screening Moderate Risk Diagnosis Psychosis Pertinent Medical Hx/Surgical Hx HTN, DM Subjective Information Pt is a 74-year-old female admitted on 04/04 d/t increased agitation, hallucinations and paranoia. Pt is eating an estimated 60% of meals x 4 days Per Meal/Nutrition Activity Record. Dietary is currently providing an estimated 1900 kcals and 100 gm Pro, per Pt PO intake this is providing an estimated 1140 kcals and 60gm Pro to meet 80 % kcal and 100% Pro needs- adequate. Per wound care note (04/08), Cesar Score was 11 (has since improved to 13), Intrinsic factors that delay wound healing: Diabetes Mellitus. Extrinsic factors that delay wound healing: Decreased mobility. Anthropometrics HT: 56 WT: 218 LB (99.09 kg) ABW: 152 LB (69.09 kg) BMI: 35.28 (Obese, class II) GI/ Skin Integrity GI: WNL, Soft BM: 04/09 x1 I/O: 1360/1 (+1359) Skin Dryness, Redness RT/LT Toe Blackened, Buttocks skin tear, RT/LT Lower Legs rash and pink, Abdomen rash, pink, and reddened Cesar: 13 Diet Order: CCHO, NCS, FREDERICK Estimated Energy Needs: (Obese , ABW) 7167-2284 kcals (20-25 kcals/ kg) 55-70g Pro (0.8-1.0 g/kg) 9907-2582 ml (25-30 ml/kg) Current Diet Order/ [facility], NCS, FREDERICK Pertinent Medications Maalox (PRN), Dulcolax (PRN), Coreg, Colace, Lantus, INS-SS, Culturelle 15b, Cozaar, MOM ( PRN), Theragran Pertinent Labs POC Glucose (last 24 hours): 127, 198, 210, 277, 159 04/03: T Cholesterol 206, LDL 145, HDL 32, Alb 2.7, Glucose 267 A1c Pending Nutritional Hx/Data Height 5 ft 6 in Height (Calculated Centimeters) 167.6 Current Weight (lbs) 218 lb Weight (Calculated Kilograms) 98.9 Weight (Calculated Grams) 77434.1 [place] Body Weight 130 LB (59.09 kg) % [place] Body Weight 168 Body Mass Index (BMI) 35.2 Weight Status Obese GI Symptoms Last BM 04/09 x1 Skin Integrity/Comment: Dryness, Redness RT/LT Toe Blackened, Buttocks skin tear, RT/LT Lower Legs rash and pink, Abdomen rash, pink, and reddened Cesar: 13 Current %PO Fair (50-74%) Estimated Nutritional Goals BEE in Kcals: Adj wt of IBW Calories/Kcals/Kg 20-25 Kcals Calculated 8278-9849 Protein: Adj wt of IBW Protein g/k.8-1.0 Protein Calculated 55-70 Fluid: ml 4763-7982 ml (25-30 ml/kg) Nutritional Problem 2. Problem Problem Obesity Etiology r/t consistent energy overconsumption Signs/Symptoms: aeb BMI 35.28 (Obese, class II ). 1. Problem Problem Impaired nutrient utilization Etiology r/t endocrine dysfunction Signs/Symptoms: aeb Hx DM, labs (04/03 glucose 269), POC Glucose (last 24 hours): 127, 198, 210, 277, 159. Malnutrition Related to Morbid Obesity Malnutrition related to morbid obesity No Intervention/Recommendation Comments 1.Continue CCHO, NCS, FREDERICK diet as tolerated. 2.Continue antihyperglycemic medications for glucose control per MD order. Expected Outcomes/Goals Expected Outcomes/Goals 1.PO intake to continue to meet >75% of estimated nutritional needs. 2.Monitor PO intake, wt, nutrition related labs to trend WNL, and skin integrity to trend WNL. 3.Gradual weight loss (0.5-1Lb / week), trending towards IBW. 4.F/U as moderate risk in 3-5 days, 04/13-04/15
--- NOTE | 2019-04-12 22:29 | Progress Notes ---
DATE: 04/12/2019 SUBJECTIVE: Chart reviewed and the patient interviewed. Also discussed the patient's condition with the staff and reviewed records and labs. The patient is still anxious and confused and is still argumentative, but at the same time, it seems to be easier to redirect her and also, the patient did take her medications, both Lexapro and Risperdal yesterday. The patient also still has episodes of irritability and agitation and argues for no reason. She also has been compliant with medications yesterday with no side effects of medications. ASSESSMENT: The patient is still confused and paranoid and needs close monitoring. TREATMENT PLAN: Continue Lexapro and Risperdal same dose. Also, continue monitoring behavior. The patient did not complain about constipation today and we will continue to follow up closely. JOB# [id number]
[2019-04-13] MEDS: INSULIN LISPRO SLIDING SCALE 100 UNITS/ML UNIT SUBQ SCH ×4 (06:37→20:57)
[2019-04-13] MEDS: Multivitamin Tab PO SCH (08:23)
[2019-04-13] MEDS: Lactobacillus Rhamnosus GG 15 Billion CFU CAP.SPRINK PO SCH (08:23)
[2019-04-13] MEDS: NYSTATIN 100000 UNITS/GM POWD TP SCH ×2 (08:24→17:27)
--- NOTE | 2019-04-13 11:04 | Internal Medicine Prog Note ---
Internal Medicine Subjective - Subjective Service Date: 04/13/19 Patient seen and examined:: with staff Patient is:: awake, verbal, agitated, confused Patient Complaints of:: other (History of Htn and Diabetes.) Per staff patient has:: no adverse event, no episodes of fall, other (selective with medications) Internal Medicine Objective - Results Recent Labs: Laboratory Last Values POC Glucose 169 MG/DL (70 - 105) H 04/13/19 06:07 - Physical Exam Vitals and I&O: Vital Signs Temp 97.0 F 04/13/19 06:04 Pulse 72 04/13/19 08:23 Resp 16 04/13/19 07:34 BP 160/64 04/13/19 08:23 Pulse Ox 94 04/13/19 06:04 Intake & Output 04/12/19 04/13/19 04/13/19 18:59 06:59 18:59 Intake Total 1000 420 Balance 1000 420 Intake: Oral 1000 420 Other: # Voids 5 2 # Bowel Movements 0 0 Active Medications: Current Medications Acetaminophen (Tylenol) 650 mg PO Q6HR PRN PRN Reason: Pain (Mild 1-3) Stop: 06/03/19 07:56 Al Hydrox/Mg Hydrox/Simethicone (Maalox) 30 ml PO Q4HR PRN PRN Reason: GI DISTRESS Stop: 06/03/19 05:00 Aspirin (Ecotrin) 81 mg PO DAILY [facility] Stop: 06/03/19 08:59 Last Admin: 04/13/19 08:23 Dose: 81 mg Bisacodyl (Dulcolax 10 Mg Supp) 10 mg RC DAILY PRN PRN Reason: IF MIRALAX INEFFECTIVE Stop: 06/03/19 07:56 Carvedilol (Coreg) 6.25 mg PO BID [facility] Stop: 06/03/19 08:59 Last Admin: 04/13/19 08:23 Dose: 6.25 mg Docusate Sodium (Colace) 100 mg PO BID [facility] Stop: 06/03/19 08:59 Last Admin: 04/13/19 08:23 Dose: 100 mg Escitalopram Oxalate (Lexapro) 10 mg PO HS [facility]; Protocol Stop: 06/12/19 20:59 Hydralazine HCl (Apresoline) 25 mg PO Q8HR PRN PRN Reason: HTN Stop: 06/03/19 07:56 Last Admin: 04/10/19 21:09 Dose: 25 mg Insulin Glargine (Lantus Insulin) 25 units SUBQ HS [facility] Stop: 06/03/19 20:59 Last Admin: 04/12/19 21:25 Dose: 25 units Insulin Human Lispro (Humalog Insulin Sliding Scale) 0 units SUBQ ACHS [facility]; Protocol Stop: 06/03/19 11:29 Last Admin: 04/13/19 06:37 Dose: 2 units Lactobacillus Rhamnosus (Culturelle 15b) 1 each PO DAILY [facility] Stop: 06/03/19 08:59 Last Admin: 04/13/19 08:23 Dose: 1 each Lorazepam (Ativan) 0.5 mg PO Q4HR PRN; Protocol PRN Reason: Anxiety Stop: 05/04/19 05:00 Losartan Potassium (Cozaar) 100 mg PO DAILY [facility] Stop: 06/03/19 08:59 Last Admin: 04/13/19 08:22 Dose: 100 mg Magnesium Hydroxide (Milk Of Magnesia) 30 ml PO TID PRN PRN Reason: GI DISTRESS Multivitamins/Vitamin C (Theragran) 1 tab PO DAILY [facility] Stop: 06/03/19 08:59 Last Admin: 04/13/19 08:23 Dose: 1 tab Nystatin (Nystop) 0 units TP BID [facility] Stop: 06/07/19 16:59 Last Admin: 04/13/19 08:24 Dose: 100,000 units Polyethylene Glycol (Miralax) 17 gm PO DAILY PRN PRN Reason: Constipation Stop: 06/03/19 07:56 Risperidone (Risperdal) 2 mg PO HS [facility] Stop: 06/10/19 20:59 Last Admin: 04/12/19 21:09 Dose: 2 mg Senna (Senna) 8.6 mg PO DAILY [facility] Stop: 06/03/19 08:59 Last Admin: 04/13/19 08:23 Dose: 8.6 mg Simethicone (Mylicon) 80 mg PO Q6HR PRN PRN Reason: Gas Stop: 06/03/19 07:56 Zolpidem Tartrate (Ambien) 5 mg PO HS PRN PRN Reason: Insomnia Stop: 06/03/19 05:00 Physical Exam: Patient needs close monitoring, patient is easily frustrated, very confused and arguing with staff. General: weak, demented, NAD HEENT: NC/AT, PERRLA Neck: Supple, No JVD Lungs: other (no acute respiratory distress on RA) Cardiovascular: RRR Abdomen: soft, non-tender, non-distended Extremities: rash Neurological: no change Internal Medicine Assmt/Plan - Assessment Assessment: UTI. Psychosis. Paranoia. Depression. Hypertension. Diabetes Mellitus. Schizophrenia. - Plan Plan: Psych management as per Psych. Continue present meds as directed. Accu-check daily, diabetic low sodium diet/nutritional support. Monitor vitals and labs. Fall precaution. Local skin care. Continue current treatment plan. Nutritional Asmnt/Malnutr-PDOC - Dietary Evaluation Malnutrition Findings (Please click <Entered> for more info): Nutritional Asmnt/Malnutrition Start: 04/10/19 15: 40 Text: Status: Complete Freq: Protocol: Document 04/10/19 15:40 JASMIN (Rec: 04/10/19 15:43 JASMIN [id number]) Nutritional Asmnt/Malnutrition Patient General Information Nutritional Screening Moderate Risk Diagnosis Psychosis Pertinent Medical Hx/Surgical Hx HTN, DM Subjective Information Pt is a 74-year-old female admitted on 04/04 d/t increased agitation, hallucinations and paranoia. Pt is eating an estimated 60% of meals x 4 days Per Meal/Nutrition Activity Record. Dietary is currently providing an estimated 1900 kcals and 100 gm Pro, per Pt PO intake this is providing an estimated 1140 kcals and 60gm Pro to meet 80 % kcal and 100% Pro needs- adequate. Per wound care note (04/08), Cesar Score was 11 (has since improved to 13), Intrinsic factors that delay wound healing: Diabetes Mellitus. Extrinsic factors that delay wound healing: Decreased mobility. Anthropometrics HT: 56 WT: 218 LB (99.09 kg) ABW: 152 LB (69.09 kg) BMI: 35.28 (Obese, class II) GI/ Skin Integrity GI: WNL, Soft BM: 04/09 x1 I/O: 1360/1 (+1359) Skin Dryness, Redness RT/LT Toe Blackened, Buttocks skin tear, RT/LT Lower Legs rash and pink, Abdomen rash, pink, and reddened Cesar: 13 Diet Order: CCHO, NCS, FREDERICK Estimated Energy Needs: (Obese , ABW) 9446-8128 kcals (20-25 kcals/ kg) 55-70g Pro (0.8-1.0 g/kg) 0328-5291 ml (25-30 ml/kg) Current Diet Order/ Nutrition Support CCHO, NCS, FREDERICK Pertinent Medications Maalox (PRN), Dulcolax (PRN), Coreg, Colace, Lantus, INS-SS, Culturelle 15b, Cozaar, MOM ( PRN), Theragran Pertinent Labs POC Glucose (last 24 hours): 127, 198, 210, 277, 159 04/03: T Cholesterol 206, LDL 145, HDL 32, Alb 2.7, Glucose 267 A1c Pending Nutritional Hx/Data Height 1.68 m Height (Calculated Centimeters) 167.6 Current Weight (lbs) 98.883 kg Weight (Calculated Kilograms) 98.9 Weight (Calculated Grams) 52369.1 [place] Body Weight 130 LB (59.09 kg) % [place] Body Weight 168 Body Mass Index (BMI) 35.2 Weight Status Obese GI Symptoms Last BM 04/09 x1 Skin Integrity/Comment: Dryness, Redness RT/LT Toe Blackened, Buttocks skin tear, RT/LT Lower Legs rash and pink, Abdomen rash, pink, and reddened Cesar: 13 Current %PO Fair (50-74%) Estimated Nutritional Goals BEE in Kcals: Adj wt of IBW Calories/Kcals/Kg 20-25 Kcals Calculated 3800-8231 Protein: Adj wt of IBW Protein g/k.8-1.0 Protein Calculated 55-70 Fluid: ml 1409-4752 ml (25-30 ml/kg) Nutritional Problem 2. Problem Problem Obesity Etiology r/t consistent energy overconsumption Signs/Symptoms: aeb BMI 35.28 (Obese, class II ). 1. Problem Problem Impaired nutrient utilization Etiology r/t endocrine dysfunction Signs/Symptoms: aeb Hx DM, labs (04/03 glucose 269), POC Glucose (last 24 hours): 127, 198, 210, 277, 159. Malnutrition Related to Morbid Obesity Malnutrition related to morbid obesity No Intervention/Recommendation Comments 1.Continue CCHO, NCS, FREDERICK diet as tolerated. 2.Continue antihyperglycemic medications for glucose control per MD order. Expected Outcomes/Goals Expected Outcomes/Goals 1.PO intake to continue to meet >75% of estimated nutritional needs. 2.Monitor PO intake, wt, nutrition related labs to trend WNL, and skin integrity to trend WNL. 3.Gradual weight loss (0.5-1Lb / week), trending towards IBW. 4.F/U as moderate risk in 3-5 days, 04/13-04/15
[2019-04-13] MEDS: Insulin Glargine 100 units/ml 10ml Vial SUBQ SCH (20:56)
--- NOTE | 2019-04-14 01:41 | Progress Notes ---
DATE: 04/13/2019 SUBJECTIVE: Chart was reviewed and the patient interviewed. Also discussed the patient's condition with the staff and reviewed records and labs. The patient continued to be in a depressed mood. The patient also is still withdrawn and is still demanding and calling the nurses over and over for no apparent reason. The patient also is still withdrawn and guarded and depressed. The patient also still has difficulty making decisions. The patient also is still restless and still needs redirections. Otherwise, she is compliant with taking her medications. ASSESSMENT: The patient is still depressed and is still slightly psychotic. TREATMENT PLAN: We will continue to monitor behavior and condition closely. Also, we will increase Lexapro to 10 mg every day and continue Risperdal 2 mg every day and continue to follow up closely. JOB# [id number]
[2019-04-14] MEDS: INSULIN LISPRO SLIDING SCALE 100 UNITS/ML UNIT SUBQ SCH ×4 (06:53→20:55)
[2019-04-14] MEDS: NYSTATIN 100000 UNITS/GM POWD TP SCH ×2 (08:38→17:05)
[2019-04-14] MEDS: Multivitamin Tab PO SCH (08:39)
[2019-04-14] MEDS: Lactobacillus Rhamnosus GG 15 Billion CFU CAP.SPRINK PO SCH (08:39)
--- NOTE | 2019-04-14 17:26 | Internal Medicine Prog Note ---
Internal Medicine Subjective - Subjective Service Date: 04/14/19 Patient is:: awake, verbal, agitated, confused Patient Complaints of:: other (History of Htn and Diabetes.) Per staff patient has:: no adverse event, no episodes of fall, other (selective with medications) Internal Medicine Objective - Results Recent Labs: Laboratory Last Values POC Glucose 146 MG/DL (70 - 105) H 04/14/19 11:34 - Physical Exam Vitals and I&O: Vital Signs Temp 97.5 F 04/14/19 15:47 Pulse 94 04/14/19 17:04 Resp 20 04/14/19 15:47 BP 143/89 04/14/19 17:04 Pulse Ox 94 04/14/19 15:47 Intake & Output 04/13/19 04/14/19 04/14/19 18:59 06:59 18:59 Intake Total 900 240 Output Total 1 Balance 900 239 Intake: Oral 900 240 Output: Urine/Stool Mix 1 Other: # Voids 1 Active Medications: Current Medications Acetaminophen (Tylenol) 650 mg PO Q6HR PRN PRN Reason: Pain (Mild 1-3) Stop: 06/03/19 07:56 Al Hydrox/Mg Hydrox/Simethicone (Maalox) 30 ml PO Q4HR PRN PRN Reason: GI DISTRESS Stop: 06/03/19 05:00 Aspirin (Ecotrin) 81 mg PO DAILY [facility] Stop: 06/03/19 08:59 Last Admin: 04/14/19 08:39 Dose: 81 mg Bisacodyl (Dulcolax 10 Mg Supp) 10 mg RC DAILY PRN PRN Reason: IF MIRALAX INEFFECTIVE Stop: 06/03/19 07:56 Carvedilol (Coreg) 6.25 mg PO BID [facility] Stop: 06/03/19 08:59 Last Admin: 04/14/19 17:04 Dose: 6.25 mg Docusate Sodium (Colace) 100 mg PO BID [facility] Stop: 06/03/19 08:59 Last Admin: 04/14/19 17:05 Dose: 100 mg Escitalopram Oxalate (Lexapro) 10 mg PO HS [facility]; Protocol Stop: 06/12/19 20:59 Last Admin: 04/13/19 20:56 Dose: 10 mg Hydralazine HCl (Apresoline) 25 mg PO Q8HR PRN PRN Reason: HTN Stop: 06/03/19 07:56 Last Admin: 04/10/19 21:09 Dose: 25 mg Insulin Glargine (Lantus Insulin) 25 units SUBQ HS [facility] Stop: 06/03/19 20:59 Last Admin: 04/13/19 20:56 Dose: 25 units Insulin Human Lispro (Humalog Insulin Sliding Scale) 0 units SUBQ ACHS [facility]; Protocol Stop: 06/03/19 11:29 Last Admin: 04/14/19 11:25 Dose: Not Given Lactobacillus Rhamnosus (Culturelle 15b) 1 each PO DAILY [facility] Stop: 06/03/19 08:59 Last Admin: 04/14/19 08:39 Dose: 1 each Lorazepam (Ativan) 0.5 mg PO Q4HR PRN; Protocol PRN Reason: Anxiety Stop: 05/04/19 05:00 Losartan Potassium (Cozaar) 100 mg PO DAILY [facility] Stop: 06/03/19 08:59 Last Admin: 04/14/19 08:40 Dose: 100 mg Magnesium Hydroxide (Milk Of Magnesia) 30 ml PO TID PRN PRN Reason: GI DISTRESS Multivitamins/Vitamin C (Theragran) 1 tab PO DAILY [facility] Stop: 06/03/19 08:59 Last Admin: 04/14/19 08:39 Dose: 1 tab Nystatin (Nystop) 0 units TP BID [facility] Stop: 06/07/19 16:59 Last Admin: 04/14/19 17:05 Dose: 100,000 units Polyethylene Glycol (Miralax) 17 gm PO DAILY PRN PRN Reason: Constipation Stop: 06/03/19 07:56 Risperidone (Risperdal) 3 mg PO HS [facility] Stop: 06/13/19 20:59 Senna (Senna) 8.6 mg PO DAILY [facility] Stop: 06/03/19 08:59 Last Admin: 04/14/19 08:39 Dose: 8.6 mg Simethicone (Mylicon) 80 mg PO Q6HR PRN PRN Reason: Gas Stop: 06/03/19 07:56 Zolpidem Tartrate (Ambien) 5 mg PO HS PRN PRN Reason: Insomnia Stop: 06/03/19 05:00 General: weak, demented, NAD HEENT: NC/AT, PERRLA Neck: Supple, No JVD Lungs: other (no acute respiratory distress on RA) Cardiovascular: RRR Abdomen: soft, non-tender, non-distended Extremities: rash Neurological: no change Internal Medicine Assmt/Plan - Assessment Assessment: Schizophrenia HTN DM - Plan Plan: Continue current treatment plan. Continue current medications Continue to monitor VS Monitor Diet/Nutritional support. Psych management per Psychiatry. Pain Management. PT/OT prn Safety precaution, Fall precaution, frequent nursing round. Supportive care. Continue collaborating with consulting specialists, case management and nursing team Wound/Skin care as needed Nutritional Asmnt/Malnutr-PDOC - Dietary Evaluation Malnutrition Findings (Please click <Entered> for more info): Nutritional Asmnt/Malnutrition Start: 04/10/19 15: 40 Text: Status: Complete Freq: Protocol: Document 04/10/19 15:40 JASMIN (Rec: 04/10/19 15:43 JASMIN [id number]) Nutritional Asmnt/Malnutrition Patient General Information Nutritional Screening Moderate Risk Diagnosis Psychosis Pertinent Medical Hx/Surgical Hx HTN, DM Subjective Information Pt is a 74-year-old female admitted on 04/04 d/t increased agitation, hallucinations and paranoia. Pt is eating an estimated 60% of meals x 4 days Per Meal/Nutrition Activity Record. Dietary is currently providing an estimated 1900 kcals and 100 gm Pro, per Pt PO intake this is providing an estimated 1140 kcals and 60gm Pro to meet 80 % kcal and 100% Pro needs- adequate. Per wound care note (04/08), Cesar Score was 11 (has since improved to 13), Intrinsic factors that delay wound healing: Diabetes Mellitus. Extrinsic factors that delay wound healing: Decreased mobility. Anthropometrics HT: 56 WT: 218 LB (99.09 kg) ABW: 152 LB (69.09 kg) BMI: 35.28 (Obese, class II) GI/ Skin Integrity GI: WNL, Soft BM: 04/09 x1 I/O: 1360/1 (+1359) Skin Dryness, Redness RT/LT Toe Blackened, Buttocks skin tear, RT/LT Lower Legs rash and pink, Abdomen rash, pink, and reddened Cesar: 13 Diet Order: CCHO, NCS, FREDERICK Estimated Energy Needs: (Obese , ABW) 7359-7478 kcals (20-25 kcals/ kg) 55-70g Pro (0.8-1.0 g/kg) 0341-2056 ml (25-30 ml/kg) Current Diet Order/ Nutrition Support CCHO, NCS, FREDERICK Pertinent Medications Maalox (PRN), Dulcolax (PRN), Coreg, Colace, Lantus, INS-SS, Culturelle 15b, Cozaar, MOM ( PRN), Theragran Pertinent Labs POC Glucose (last 24 hours): 127, 198, 210, 277, 159 04/03: T Cholesterol 206, LDL 145, HDL 32, Alb 2.7, Glucose 267 A1c Pending Nutritional Hx/Data Height 5 ft 6 in Height (Calculated Centimeters) 167.6 Current Weight (lbs) 218 lb Weight (Calculated Kilograms) 98.9 Weight (Calculated Grams) 63328.1 [place] Body Weight 130 LB (59.09 kg) % [place] Body Weight 168 Body Mass Index (BMI) 35.2 Weight Status Obese GI Symptoms Last BM 04/09 x1 Skin Integrity/Comment: Dryness, Redness RT/LT Toe Blackened, Buttocks skin tear, RT/LT Lower Legs rash and pink, Abdomen rash, pink, and reddened Cesar: 13 Current %PO Fair (50-74%) Estimated Nutritional Goals BEE in Kcals: Adj wt of IBW Calories/Kcals/Kg 20-25 Kcals Calculated 6094-6016 Protein: Adj wt of IBW Protein g/k.8-1.0 Protein Calculated 55-70 Fluid: ml 9368-5950 ml (25-30 ml/kg) Nutritional Problem 2. Problem Problem Obesity Etiology r/t consistent energy overconsumption Signs/Symptoms: aeb BMI 35.28 (Obese, class II ). 1. Problem Problem Impaired nutrient utilization Etiology r/t endocrine dysfunction Signs/Symptoms: aeb Hx DM, labs (04/03 glucose 269), POC Glucose (last 24 hours): 127, 198, 210, 277, 159. Malnutrition Related to Morbid Obesity Malnutrition related to morbid obesity No Intervention/Recommendation Comments 1.Continue CCHO, NCS, FREDERICK diet as tolerated. 2.Continue antihyperglycemic medications for glucose control per MD order. Expected Outcomes/Goals Expected Outcomes/Goals 1.PO intake to continue to meet >75% of estimated nutritional needs. 2.Monitor PO intake, wt, nutrition related labs to trend WNL, and skin integrity to trend WNL. 3.Gradual weight loss (0.5-1Lb / week), trending towards IBW. 4.F/U as moderate risk in 3-5 days, 04/13-04/15
--- NOTE | 2019-04-14 18:43 | Progress Notes ---
DATE: 04/14/2019 SUBJECTIVE: Chart was reviewed and the patient interviewed. Also discussed the patient's condition with the staff and reviewed records and labs. The patient continued to be confused and is still suspicious and paranoid. The patient also is argumentative. The patient also is upset with the roommate and she has new roommate, but she is still paranoid about her roommate and arguments with her. She also is still unpredictable and easily agitated. Otherwise, the patient continued to comply with taking her medications with no side effects of medications. ASSESSMENT: The patient is still paranoid and is still psychotic. TREATMENT PLAN: Continue to monitor behavior and condition closely. Also, would increase Risperdal to 3 mg at bedtime and continue Lexapro 10 mg every bedtime and continue to follow up behavior closely. JOB# [id number]
[2019-04-14] MEDS: Insulin Glargine 100 units/ml 10ml Vial SUBQ SCH (20:52)
[2019-04-15] MEDS: INSULIN LISPRO SLIDING SCALE 100 UNITS/ML UNIT SUBQ SCH ×4 (06:50→21:06)
[2019-04-15] MEDS: NYSTATIN 100000 UNITS/GM POWD TP SCH ×2 (09:03→16:31)
[2019-04-15] MEDS: Lactobacillus Rhamnosus GG 15 Billion CFU CAP.SPRINK PO SCH (09:05)
[2019-04-15] MEDS: Multivitamin Tab PO SCH (09:05)
[2019-04-15] MEDS ORDERED: Maalox 30 mL Cup PO PRN (10:10)
--- NOTE | 2019-04-15 11:03 | Internal Medicine Prog Note ---
Internal Medicine Subjective - Subjective Service Date: 04/15/19 Patient seen and examined:: with staff Patient is:: awake, verbal, agitated, confused Patient Complaints of:: other (History of Htn and Diabetes.) Per staff patient has:: no adverse event, no episodes of fall, other (selective with medications) Internal Medicine Objective - Results Recent Labs: Laboratory Last Values POC Glucose 171 MG/DL (70 - 105) H 04/15/19 06:11 - Physical Exam Vitals and I&O: Vital Signs Temp 98.0 F 04/15/19 06:53 Pulse 68 04/15/19 09:04 Resp 16 04/15/19 07:23 BP 120/85 04/15/19 09:04 Pulse Ox 97 04/15/19 06:53 Intake & Output 04/14/19 04/15/19 04/15/19 18:59 06:59 18:59 Intake Total 950 360 Output Total 1 Balance 950 359 Intake: Oral 950 360 Output: Urine/Stool Mix 1 Other: # Voids 4 0 # Bowel Movements 1 Active Medications: Current Medications Acetaminophen (Tylenol) 650 mg PO Q6HR PRN PRN Reason: Pain (Mild 1-3) Stop: 06/03/19 07:56 Al Hydrox/Mg Hydrox/Simethicone (Maalox) 30 ml PO Q4HR PRN PRN Reason: GI DISTRESS Stop: 06/03/19 05:00 Aspirin (Ecotrin) 81 mg PO DAILY [facility] Stop: 06/03/19 08:59 Last Admin: 04/15/19 09:05 Dose: 81 mg Bisacodyl (Dulcolax 10 Mg Supp) 10 mg RC DAILY PRN PRN Reason: IF MIRALAX INEFFECTIVE Stop: 06/03/19 07:56 Carvedilol (Coreg) 6.25 mg PO BID [facility] Stop: 06/03/19 08:59 Last Admin: 04/15/19 09:04 Dose: 6.25 mg Docusate Sodium (Colace) 100 mg PO BID [facility] Stop: 06/03/19 08:59 Last Admin: 04/15/19 09:14 Dose: Not Given Escitalopram Oxalate (Lexapro) 10 mg PO [facility]; Protocol Stop: 06/12/19 20:59 Last Admin: 04/14/19 21:55 Dose: 10 mg Hydralazine HCl (Apresoline) 25 mg PO Q8HR PRN PRN Reason: HTN Stop: 06/03/19 07:56 Last Admin: 04/10/19 21:09 Dose: 25 mg Insulin Glargine (Lantus Insulin) 25 units SUBQ HS [facility] Stop: 06/03/19 20:59 Last Admin: 04/14/19 20:52 Dose: 25 units Insulin Human Lispro (Humalog Insulin Sliding Scale) 0 units SUBQ [facility]; Protocol Stop: 06/03/19 11:29 Last Admin: 04/15/19 06:50 Dose: 2 units Lactobacillus Rhamnosus (Culturelle 15b) 1 each PO DAILY [facility] Stop: 06/03/19 08:59 Last Admin: 04/15/19 09:05 Dose: 1 each Lorazepam (Ativan) 0.5 mg PO Q4HR PRN; Protocol PRN Reason: Anxiety Stop: 05/04/19 05:00 Losartan Potassium (Cozaar) 100 mg PO DAILY [facility] Stop: 06/03/19 08:59 Last Admin: 04/15/19 09:04 Dose: 100 mg Multivitamins/Vitamin C (Theragran) 1 tab PO DAILY [facility] Stop: 06/03/19 08:59 Last Admin: 04/15/19 09:05 Dose: 1 tab Nystatin (Nystop) 0 units TP BID [facility] Stop: 06/07/19 16:59 Last Admin: 04/15/19 09:03 Dose: 100,000 units Polyethylene Glycol (Miralax) 17 gm PO DAILY PRN PRN Reason: Constipation Stop: 06/03/19 07:56 Risperidone (Risperdal) 3 mg PO HS [facility] Stop: 06/13/19 20:59 Last Admin: 04/14/19 21:55 Dose: 3 mg Senna (Senna) 8.6 mg PO DAILY [facility] Stop: 06/03/19 08:59 Last Admin: 04/15/19 09:18 Dose: Not Given Simethicone (Mylicon) 80 mg PO Q6HR PRN PRN Reason: Gas Stop: 06/03/19 07:56 Zolpidem Tartrate (Ambien) 5 mg PO HS PRN PRN Reason: Insomnia Stop: 06/03/19 05:00 Physical Exam: Patient needs close monitoring, patient is very unpredictable, dis-oriented and paranoid. General: weak, demented, NAD HEENT: NC/AT, PERRLA Neck: Supple, No JVD Lungs: other (no acute respiratory distress on RA) Cardiovascular: RRR Abdomen: soft, non-tender, non-distended Extremities: rash Neurological: no change Internal Medicine Assmt/Plan - Assessment Assessment: UTI. Psychosis. Paranoia. Depression. Hypertension. Diabetes Mellitus. Schizophrenia. - Plan Plan: Psych management as per Psych. Continue present meds as directed. Accu-check daily, diabetic low sodium diet/nutritional support. Monitor vitals and labs. Fall precaution. Local skin care. Continue current treatment plan. Nutritional Asmnt/Malnutr-PDOC - Dietary Evaluation Malnutrition Findings (Please click <Entered> for more info): Nutritional Asmnt/Malnutrition Start: 04/10/19 15: 40 Text: Status: Complete Freq: Protocol: Document 04/10/19 15:40 JASMIN (Rec: 04/10/19 15:43 JASMIN [id number]) Nutritional Asmnt/Malnutrition Patient General Information Nutritional Screening Moderate Risk Diagnosis Psychosis Pertinent Medical Hx/Surgical Hx HTN, DM Subjective Information Pt is a 74-year-old female admitted on 04/04 d/t increased agitation, hallucinations and paranoia. Pt is eating an estimated 60% of meals x 4 days Per Meal/Nutrition Activity Record. Dietary is currently providing an estimated 1900 kcals and 100 gm Pro, per Pt PO intake this is providing an estimated 1140 kcals and 60gm Pro to meet 80 % kcal and 100% Pro needs- adequate. Per wound care note (04/08), Cesar Score was 11 (has since improved to 13), Intrinsic factors that delay wound healing: Diabetes Mellitus. Extrinsic factors that delay wound healing: Decreased mobility. Anthropometrics HT: 56 WT: 218 LB (99.09 kg) ABW: 152 LB (69.09 kg) BMI: 35.28 (Obese, class II) GI/ Skin Integrity GI: WNL, Soft BM: 04/09 x1 I/O: 1360/1 (+1359) Skin Dryness, Redness RT/LT Toe Blackened, Buttocks skin tear, RT/LT Lower Legs rash and pink, Abdomen rash, pink, and reddened Cesar: 13 Diet Order: CCHO, NCS, FREDERICK Estimated Energy Needs: (Obese , ABW) 1433-9975 kcals (20-25 kcals/ kg) 55-70g Pro (0.8-1.0 g/kg) 3189-4581 ml (25-30 ml/kg) Current Diet Order/ Nutrition Support CCHO, NCS, FREDERICK Pertinent Medications Maalox (PRN), Dulcolax (PRN), Coreg, Colace, Lantus, INS-SS, Culturelle 15b, Cozaar, MOM ( PRN), Theragran Pertinent Labs POC Glucose (last 24 hours): 127, 198, 210, 277, 159 04/03: T Cholesterol 206, LDL 145, HDL 32, Alb 2.7, Glucose 267 A1c Pending Nutritional Hx/Data Height 1.68 m Height (Calculated Centimeters) 167.6 Current Weight (lbs) 98.883 kg Weight (Calculated Kilograms) 98.9 Weight (Calculated Grams) 15399.1 [place] Body Weight 130 LB (59.09 kg) % [place] Body Weight 168 Body Mass Index (BMI) 35.2 Weight Status Obese GI Symptoms Last BM 04/09 x1 Skin Integrity/Comment: Dryness, Redness RT/LT Toe Blackened, Buttocks skin tear, RT/LT Lower Legs rash and pink, Abdomen rash, pink, and reddened Cesar: 13 Current %PO Fair (50-74%) Estimated Nutritional Goals BEE in Kcals: Adj wt of IBW Calories/Kcals/Kg 20-25 Kcals Calculated 2941-8852 Protein: Adj wt of IBW Protein g/k.8-1.0 Protein Calculated 55-70 Fluid: ml 0954-5172 ml (25-30 ml/kg) Nutritional Problem 2. Problem Problem Obesity Etiology r/t consistent energy overconsumption Signs/Symptoms: aeb BMI 35.28 (Obese, class II ). 1. Problem Problem Impaired nutrient utilization Etiology r/t endocrine dysfunction Signs/Symptoms: aeb Hx DM, labs (04/03 glucose 269), POC Glucose (last 24 hours): 127, 198, 210, 277, 159. Malnutrition Related to Morbid Obesity Malnutrition related to morbid obesity No Intervention/Recommendation Comments 1.Continue CCHO, NCS, FREDERICK diet as tolerated. 2.Continue antihyperglycemic medications for glucose control per MD order. Expected Outcomes/Goals Expected Outcomes/Goals 1.PO intake to continue to meet >75% of estimated nutritional needs. 2.Monitor PO intake, wt, nutrition related labs to trend WNL, and skin integrity to trend WNL. 3.Gradual weight loss (0.5-1Lb / week), trending towards IBW. 4.F/U as moderate risk in 3-5 days, 04/13-04/15
[2019-04-15] MEDS ORDERED: Menthol/Zinc Oxide Oint 113gm Tube TP PRN (14:27)
[2019-04-15] MEDS: Insulin Glargine 100 units/ml 10ml Vial SUBQ SCH (21:05)
[2019-04-16] MEDS: INSULIN LISPRO SLIDING SCALE 100 UNITS/ML UNIT SUBQ SCH ×4 (06:53→21:58)
[2019-04-16] MEDS: NYSTATIN 100000 UNITS/GM POWD TP SCH ×2 (08:40→17:04)
[2019-04-16] MEDS: Multivitamin Tab PO SCH (08:53)
[2019-04-16] MEDS: Lactobacillus Rhamnosus GG 15 Billion CFU CAP.SPRINK PO SCH (08:53)
--- NOTE | 2019-04-16 10:13 | Progress Notes ---
DATE: SUBJECTIVE: Chart reviewed and the patient interviewed. Also discussed the patient's condition with the staff and reviewed records and labs. The patient is still in a depressed mood and she is still attention seeking and needy. The patient also is still confused and restless and she has difficulty following directions at times. The patient is also still paranoid about her roommate and still talking about her roommates. Otherwise, the patient yesterday did take her medications with no arguing or appear resisting. ASSESSMENT: The patient is still depressed and is still psychotic. TREATMENT PLAN: Continue Lexapro 10 mg at bedtime and Risperdal was increased to 3 mg at bedtime and we will continue same dose and continue to follow up. [facility]# [id number]
--- NOTE | 2019-04-16 14:03 | Internal Medicine Prog Note ---
Internal Medicine Subjective - Subjective Service Date: 04/16/19 Patient is:: awake, verbal, agitated, confused Patient Complaints of:: other (History of Htn and Diabetes.) Per staff patient has:: no adverse event, no episodes of fall, other (selective with medications) Internal Medicine Objective - Results Recent Labs: Laboratory Last Values POC Glucose 186 MG/DL (70 - 105) H 04/16/19 11:34 - Physical Exam Vitals and I&O: Vital Signs Temp 97.3 F 04/16/19 13:50 Pulse 61 04/16/19 13:50 Resp 20 04/16/19 13:50 BP 147/70 04/16/19 13:50 Pulse Ox 95 04/16/19 13:50 Intake & Output 04/15/19 04/16/19 04/16/19 18:59 06:59 18:59 Intake Total 1100 120 Balance 1100 120 Intake: Oral 740 120 Other 360 Other: # Voids 3 2 # Bowel Movements 1 0 Active Medications: Current Medications Acetaminophen (Tylenol) 650 mg PO Q6HR PRN PRN Reason: Pain (Mild 1-3) Stop: 06/03/19 07:56 Al Hydrox/Mg Hydrox/Simethicone (Maalox) 30 ml PO Q4HR PRN PRN Reason: GI DISTRESS Stop: 06/03/19 05:00 Aspirin (Ecotrin) 81 mg PO DAILY [facility] Stop: 06/03/19 08:59 Last Admin: 04/16/19 08:54 Dose: 81 mg Bisacodyl (Dulcolax 10 Mg Supp) 10 mg RC DAILY PRN PRN Reason: IF MIRALAX INEFFECTIVE Stop: 06/03/19 07:56 Calamine/Phenol (Calmoseptine) 1 appl TP QID PRN PRN Reason: Skin Irritation Stop: 06/14/19 14:26 Carvedilol (Coreg) 6.25 mg PO BID [facility] Stop: 06/03/19 08:59 Last Admin: 04/16/19 08:54 Dose: Not Given Docusate Sodium (Colace) 100 mg PO BID [facility] Stop: 06/03/19 08:59 Last Admin: 04/16/19 08:53 Dose: 100 mg Escitalopram Oxalate (Lexapro) 10 mg PO HS [facility]; Protocol Stop: 06/12/19 20:59 Last Admin: 04/15/19 21:21 Dose: 10 mg Hydralazine HCl (Apresoline) 25 mg PO Q8HR PRN PRN Reason: HTN Stop: 06/03/19 07:56 Last Admin: 04/10/19 21:09 Dose: 25 mg Insulin Glargine (Lantus Insulin) 25 units SUBQ HS [facility] Stop: 06/03/19 20:59 Last Admin: 04/15/19 21:05 Dose: 25 units Insulin Human Lispro (Humalog Insulin Sliding Scale) 0 units SUBQ [facility]; Protocol Stop: 06/03/19 11:29 Last Admin: 04/16/19 11:46 Dose: 2 units Lactobacillus Rhamnosus (Culturelle 15b) 1 each PO DAILY [facility] Stop: 06/03/19 08:59 Last Admin: 04/16/19 08:53 Dose: 1 each Lorazepam (Ativan) 0.5 mg PO Q4HR PRN; Protocol PRN Reason: Anxiety Stop: 05/04/19 05:00 Losartan Potassium (Cozaar) 100 mg PO DAILY [facility] Stop: 06/03/19 08:59 Last Admin: 04/16/19 08:54 Dose: Not Given Multivitamins/Vitamin C (Theragran) 1 tab PO DAILY [facility] Stop: 06/03/19 08:59 Last Admin: 04/16/19 08:53 Dose: 1 tab Nystatin (Nystop) 0 units TP BID [facility] Stop: 06/07/19 16:59 Last Admin: 04/16/19 08:40 Dose: 100,000 units Polyethylene Glycol (Miralax) 17 gm PO DAILY PRN PRN Reason: Constipation Stop: 06/03/19 07:56 Risperidone (Risperdal) 3 mg PO HS [facility] Stop: 06/13/19 20:59 Last Admin: 04/15/19 21:20 Dose: 3 mg Senna (Senna) 8.6 mg PO DAILY [facility] Stop: 06/03/19 08:59 Last Admin: 04/16/19 08:53 Dose: 8.6 mg Simethicone (Mylicon) 80 mg PO Q6HR PRN PRN Reason: Gas Stop: 06/03/19 07:56 Zolpidem Tartrate (Ambien) 5 mg PO HS PRN PRN Reason: Insomnia Stop: 06/03/19 05:00 General: weak, demented, NAD HEENT: NC/AT, PERRLA Neck: Supple, No JVD Lungs: other (no acute respiratory distress on RA) Cardiovascular: RRR Abdomen: soft, non-tender, non-distended Extremities: rash Neurological: no change Internal Medicine Assmt/Plan - Assessment Assessment: Schizophrenia HTN DM - Plan Plan: Continue current treatment plan. Continue current medications Continue to monitor VS Monitor Diet/Nutritional support. Psych management per Psychiatry. Pain Management. PT/OT prn Safety precaution, Fall precaution, frequent nursing round. Supportive care. Continue collaborating with consulting specialists, case management and nursing team Wound/Skin care as needed Nutritional Asmnt/Malnutr-PDOC - Dietary Evaluation Malnutrition Findings (Please click <Entered> for more info): Nutritional Asmnt/Malnutrition Start: 04/10/19 15: 40 Text: Status: Complete Freq: Protocol: Document 04/10/19 15:40 JASMIN (Rec: 04/10/19 15:43 JASMIN [id number]) Nutritional Asmnt/Malnutrition Patient General Information Nutritional Screening Moderate Risk Diagnosis Psychosis Pertinent Medical Hx/Surgical Hx HTN, DM Subjective Information Pt is a 74-year-old female admitted on 04/04 d/t increased agitation, hallucinations and paranoia. Pt is eating an estimated 60% of meals x 4 days Per Meal/Nutrition Activity Record. Dietary is currently providing an estimated 1900 kcals and 100 gm Pro, per Pt PO intake this is providing an estimated 1140 kcals and 60gm Pro to meet 80 % kcal and 100% Pro needs- adequate. Per wound care note (04/08), Cesar Score was 11 (has since improved to 13), Intrinsic factors that delay wound healing: Diabetes Mellitus. Extrinsic factors that delay wound healing: Decreased mobility. Anthropometrics HT: 56 WT: 218 LB (99.09 kg) ABW: 152 LB (69.09 kg) BMI: 35.28 (Obese, class II) GI/ Skin Integrity GI: WNL, Soft BM: 04/09 x1 I/O: 1360/1 (+1359) Skin Dryness, Redness RT/LT Toe Blackened, Buttocks skin tear, RT/LT Lower Legs rash and pink, Abdomen rash, pink, and reddened Cesar: 13 Diet Order: CCHO, NCS, FREDERICK Estimated Energy Needs: (Obese , ABW) 1747-9476 kcals (20-25 kcals/ kg) 55-70g Pro (0.8-1.0 g/kg) 7450-3640 ml (25-30 ml/kg) Current Diet Order/ Nutrition Support CCHO, NCS, FREDERICK Pertinent Medications Maalox (PRN), Dulcolax (PRN), Coreg, Colace, Lantus, INS-SS, Culturelle 15b, Cozaar, MOM ( PRN), Theragran Pertinent Labs POC Glucose (last 24 hours): 127, 198, 210, 277, 159 04/03: T Cholesterol 206, LDL 145, HDL 32, Alb 2.7, Glucose 267 A1c Pending Nutritional Hx/Data Height 5 ft 6 in Height (Calculated Centimeters) 167.6 Current Weight (lbs) 218 lb Weight (Calculated Kilograms) 98.9 Weight (Calculated Grams) 59739.1 [place] Body Weight 130 LB (59.09 kg) % [place] Body Weight 168 Body Mass Index (BMI) 35.2 Weight Status Obese GI Symptoms Last BM 04/09 x1 Skin Integrity/Comment: Dryness, Redness RT/LT Toe Blackened, Buttocks skin tear, RT/LT Lower Legs rash and pink, Abdomen rash, pink, and reddened Cesar: 13 Current %PO Fair (50-74%) Estimated Nutritional Goals BEE in Kcals: Adj wt of IBW Calories/Kcals/Kg 20-25 Kcals Calculated 6306-9486 Protein: Adj wt of IBW Protein g/k.8-1.0 Protein Calculated 55-70 Fluid: ml 8592-1221 ml (25-30 ml/kg) Nutritional Problem 2. Problem Problem Obesity Etiology r/t consistent energy overconsumption Signs/Symptoms: aeb BMI 35.28 (Obese, class II ). 1. Problem Problem Impaired nutrient utilization Etiology r/t endocrine dysfunction Signs/Symptoms: aeb Hx DM, labs (04/03 glucose 269), POC Glucose (last 24 hours): 127, 198, 210, 277, 159. Malnutrition Related to Morbid Obesity Malnutrition related to morbid obesity No Intervention/Recommendation Comments 1.Continue CCHO, NCS, FREDERICK diet as tolerated. 2.Continue antihyperglycemic medications for glucose control per MD order. Expected Outcomes/Goals Expected Outcomes/Goals 1.PO intake to continue to meet >75% of estimated nutritional needs. 2.Monitor PO intake, wt, nutrition related labs to trend WNL, and skin integrity to trend WNL. 3.Gradual weight loss (0.5-1Lb / week), trending towards IBW. 4.F/U as moderate risk in 3-5 days, 04/13-04/15
--- NOTE | 2019-04-16 18:40 | Progress Notes ---
DATE: Chart reviewed and the patient interviewed. Also discussed the patient's condition with the staff and reviewed records and labs. The patient is still in irritable mood. The patient also is still depressed and interacting minimally with others. The patient also still needs lots of redirections and she is still suspicious and is still paranoid. Otherwise, the patient is compliant with taking her medications with no side effects of medications and the patient is at times argumentative and paranoid and thinking that staff are saying "negative things about me." Otherwise, she is compliant with medications. She is denying any side effects of medications. JOB# [id number]
[2019-04-16] MEDS: Insulin Glargine 100 units/ml 10ml Vial SUBQ SCH (21:58)
[2019-04-17] MEDS: INSULIN LISPRO SLIDING SCALE 100 UNITS/ML UNIT SUBQ SCH ×4 (06:53→21:34)
--- NOTE | 2019-04-17 08:31 | Progress Notes ---
DATE: SUBJECTIVE: Chart was reviewed and the patient interviewed. Also discussed the patient's condition with the staff and reviewed records and labs. The patient is still guarded and is still in a depressed mood. The patient also is still interacting minimally with others. The patient also is still suspicious and seems to be paranoid. She also still thinks that people are not caring about her and that she has been ignored. Otherwise, the patient is cooperative in regard to taking her medications and has been compliant with taking her medications with no side effects. ASSESSMENT: The patient is less anxious, but still depressed and paranoid. TREATMENT PLAN: Continue current medications and continue to work on her ineffective coping and paranoia. JOB# [id number]
[2019-04-17] MEDS: Lactobacillus Rhamnosus GG 15 Billion CFU CAP.SPRINK PO SCH (08:35)
[2019-04-17] MEDS: Multivitamin Tab PO SCH (08:36)
[2019-04-17] MEDS: NYSTATIN 100000 UNITS/GM POWD TP SCH ×2 (08:36→16:29)
--- NOTE | 2019-04-17 12:35 | Internal Medicine Prog Note ---
Internal Medicine Subjective - Subjective Service Date: 04/17/19 Patient seen and examined:: with staff Patient is:: awake, verbal, agitated, confused Patient Complaints of:: other (History of Htn and Diabetes.) Per staff patient has:: no adverse event, no episodes of fall, other (selective with medications) Internal Medicine Objective - Results Recent Labs: Laboratory Last Values POC Glucose 172 MG/DL (70 - 105) H 04/17/19 06:50 - Physical Exam Vitals and I&O: Vital Signs Temp 97.6 F 04/17/19 06:28 Pulse 78 04/17/19 08:35 Resp 18 04/17/19 06:28 BP 129/58 04/17/19 08:35 Pulse Ox 97 04/17/19 06:28 Intake & Output 04/16/19 04/17/19 04/17/19 18:59 06:59 18:59 Intake Total 120 Balance 120 Intake: Oral 120 Other: # Voids 2 3 # Bowel Movements 0 Active Medications: Current Medications Acetaminophen (Tylenol) 650 mg PO Q6HR PRN PRN Reason: Pain (Mild 1-3) Stop: 06/03/19 07:56 Al Hydrox/Mg Hydrox/Simethicone (Maalox) 30 ml PO Q4HR PRN PRN Reason: GI DISTRESS Stop: 06/03/19 05:00 Aspirin (Ecotrin) 81 mg PO DAILY [facility] Stop: 06/03/19 08:59 Last Admin: 04/17/19 08:33 Dose: 81 mg Bisacodyl (Dulcolax 10 Mg Supp) 10 mg RC DAILY PRN PRN Reason: IF MIRALAX INEFFECTIVE Stop: 06/03/19 07:56 Calamine/Phenol (Calmoseptine) 1 appl TP QID PRN PRN Reason: Skin Irritation Stop: 06/14/19 14:26 Carvedilol (Coreg) 6.25 mg PO BID [facility] Stop: 06/03/19 08:59 Last Admin: 04/17/19 08:33 Dose: 6.25 mg Docusate Sodium (Colace) 100 mg PO BID [facility] Stop: 06/03/19 08:59 Last Admin: 04/17/19 08:35 Dose: 100 mg Escitalopram Oxalate (Lexapro) 10 mg PO HS [facility]; Protocol Stop: 06/12/19 20:59 Last Admin: 04/16/19 21:56 Dose: 10 mg Hydralazine HCl (Apresoline) 25 mg PO Q8HR PRN PRN Reason: HTN Stop: 06/03/19 07:56 Last Admin: 04/10/19 21:09 Dose: 25 mg Insulin Glargine (Lantus Insulin) 25 units SUBQ HS [facility] Stop: 06/03/19 20:59 Last Admin: 04/16/19 21:58 Dose: 25 units Insulin Human Lispro (Humalog Insulin Sliding Scale) 0 units SUBQ ACHS [facility]; Protocol Stop: 06/03/19 11:29 Last Admin: 04/17/19 11:51 Dose: 2 units Lactobacillus Rhamnosus (Culturelle 15b) 1 each PO DAILY [facility] Stop: 06/03/19 08:59 Last Admin: 04/17/19 08:35 Dose: 1 each Lorazepam (Ativan) 0.5 mg PO Q4HR PRN; Protocol PRN Reason: Anxiety Stop: 05/04/19 05:00 Losartan Potassium (Cozaar) 100 mg PO DAILY [facility] Stop: 06/03/19 08:59 Last Admin: 04/17/19 08:35 Dose: 100 mg Multivitamins/Vitamin C (Theragran) 1 tab PO DAILY [facility] Stop: 06/03/19 08:59 Last Admin: 04/17/19 08:36 Dose: 1 tab Nystatin (Nystop) 0 units TP BID [facility] Stop: 06/07/19 16:59 Last Admin: 04/17/19 08:36 Dose: 100,000 units Polyethylene Glycol (Miralax) 17 gm PO DAILY PRN PRN Reason: Constipation Stop: 06/03/19 07:56 Risperidone (Risperdal) 3 mg PO HS [facility] Stop: 06/13/19 20:59 Last Admin: 04/16/19 21:56 Dose: 3 mg Senna (Senna) 8.6 mg PO DAILY [facility] Stop: 06/03/19 08:59 Last Admin: 04/17/19 08:36 Dose: 8.6 mg Simethicone (Mylicon) 80 mg PO Q6HR PRN PRN Reason: Gas Stop: 06/03/19 07:56 Zolpidem Tartrate (Ambien) 5 mg PO HS PRN PRN Reason: Insomnia Stop: 06/03/19 05:00 Physical Exam: Patient needs close monitoring, patient is in depressed mood stating everyone is against her, still very paranoid. General: weak, demented, NAD HEENT: NC/AT, PERRLA Neck: Supple, No JVD Lungs: other (no acute respiratory distress on RA) Cardiovascular: RRR Abdomen: soft, non-tender, non-distended Extremities: rash Neurological: no change Internal Medicine Assmt/Plan - Assessment Assessment: UTI. Psychosis. Paranoia. Depression. Hypertension. Diabetes Mellitus. Schizophrenia. - Plan Plan: Psych management as per Psych. Continue present meds as directed. Accu-check daily, diabetic low sodium diet/nutritional support. Monitor vitals and labs. Fall precaution. Local skin care. Continue current treatment plan. Nutritional Asmnt/Malnutr-PDOC - Dietary Evaluation Malnutrition Findings (Please click <Entered> for more info): Nutritional Asmnt/Malnutrition Start: 04/10/19 15: 40 Text: Status: Complete Freq: Protocol: Document 04/10/19 15:40 JASMIN (Rec: 04/10/19 15:43 [id number]) Nutritional Asmnt/Malnutrition Patient General Information Nutritional Screening Moderate Risk Diagnosis Psychosis Pertinent Medical Hx/Surgical Hx HTN, DM Subjective Information Pt is a 74-year-old female admitted on 04/04 d/t increased agitation, hallucinations and paranoia. Pt is eating an estimated 60% of meals x 4 days Per Meal/Nutrition Activity Record. Dietary is currently providing an estimated 1900 kcals and 100 gm Pro, per Pt PO intake this is providing an estimated 1140 kcals and 60gm Pro to meet 80 % kcal and 100% Pro needs- adequate. Per wound care note (04/08), Cesar Score was 11 (has since improved to 13), Intrinsic factors that delay wound healing: Diabetes Mellitus. Extrinsic factors that delay wound healing: Decreased mobility. Anthropometrics HT: 56 WT: 218 LB (99.09 kg) ABW: 152 LB (69.09 kg) BMI: 35.28 (Obese, class II) GI/ Skin Integrity GI: WNL, Soft BM: 04/09 x1 I/O: 1360/1 (+1359) Skin Dryness, Redness RT/LT Toe Blackened, Buttocks skin tear, RT/LT Lower Legs rash and pink, Abdomen rash, pink, and reddened Cesar: 13 Diet [facility], [facility], [place] Estimated Energy Needs: (Obese , ABW) 3811-3960 kcals (20-25 kcals/ kg) 55-70g Pro (0.8-1.0 g/kg) 1483-9870 ml (25-30 ml/kg) Current Diet Order/ Nutrition Support [facility], [facility], [place] Pertinent Medications Maalox (PRN), Dulcolax (PRN), Coreg, Colace, Lantus, INS-SS, Culturelle 15b, Cozaar, MOM ( PRN), Theragran Pertinent Labs POC Glucose (last 24 hours): 127, 198, 210, 277, 159 04/03: T Cholesterol 206, LDL 145, HDL 32, Alb 2.7, Glucose 267 A1c Pending Nutritional Hx/Data Height 1.68 m Height (Calculated Centimeters) 167.6 Current Weight (lbs) 98.883 kg Weight (Calculated Kilograms) 98.9 Weight (Calculated Grams) 64973.1 [place] Body Weight 130 LB (59.09 kg) % [place] Body Weight 168 Body Mass Index (BMI) 35.2 Weight Status Obese GI Symptoms Last BM 04/09 x1 Skin Integrity/Comment: Dryness, Redness RT/LT Toe Blackened, Buttocks skin tear, RT/LT Lower Legs rash and pink, Abdomen rash, pink, and reddened Cesar: 13 Current %PO Fair (50-74%) Estimated Nutritional Goals BEE in Kcals: Adj wt of IBW Calories/Kcals/Kg 20-25 Kcals Calculated 9598-5436 Protein: Adj wt of IBW Protein g/k.8-1.0 Protein Calculated 55-70 Fluid: ml 2765-9237 ml (25-30 ml/kg) Nutritional Problem 2. Problem Problem Obesity Etiology r/t consistent energy overconsumption Signs/Symptoms: aeb BMI 35.28 (Obese, class II ). 1. Problem Problem Impaired nutrient utilization Etiology r/t endocrine dysfunction Signs/Symptoms: aeb Hx DM, labs (04/03 glucose 269), POC Glucose (last 24 hours): 127, 198, 210, 277, 159. Malnutrition Related to Morbid Obesity Malnutrition related to morbid obesity No Intervention/Recommendation Comments 1.Continue [facility], [facility], [place] diet as tolerated. 2.Continue antihyperglycemic medications for glucose control per MD order. Expected Outcomes/Goals Expected Outcomes/Goals 1.PO intake to continue to meet >75% of estimated nutritional needs. 2.Monitor PO intake, wt, nutrition related labs to trend WNL, and skin integrity to trend WNL. 3.Gradual weight loss (0.5-1Lb / week), trending towards IBW. 4.F/U as moderate risk in 3-5 days, 04/13-04/15
[2019-04-17] MEDS: Insulin Glargine 100 units/ml 10ml Vial SUBQ SCH (21:34)
[2019-04-18] MEDS: INSULIN LISPRO SLIDING SCALE 100 UNITS/ML UNIT SUBQ SCH ×4 (06:53→21:30)
[2019-04-18] MEDS: Multivitamin Tab PO SCH (09:00)
[2019-04-18] MEDS: NYSTATIN 100000 UNITS/GM POWD TP SCH (09:00)
[2019-04-18] MEDS: Lactobacillus Rhamnosus GG 15 Billion CFU CAP.SPRINK PO SCH (09:01)
--- NOTE | 2019-04-18 13:14 | Internal Medicine Prog Note ---
Internal Medicine Subjective - Subjective Patient is:: awake, verbal, agitated, confused Patient Complaints of:: other (History of Htn and Diabetes.) Per staff patient has:: no adverse event, no episodes of fall, other (selective with medications) Internal Medicine Objective - Results Recent Labs: Laboratory Last Values POC Glucose 180 MG/DL (70 - 105) H 04/18/19 05:50 - Physical Exam Vitals and I&O: Vital Signs Temp 96.8 F 04/18/19 06:30 Pulse 86 04/18/19 09:01 Resp 19 04/18/19 06:30 BP 136/70 04/18/19 09:01 Pulse Ox 98 04/18/19 06:30 Intake & Output 04/17/19 04/18/19 04/18/19 18:59 06:59 18:59 Intake Total 420 Output Total 1 Balance 419 Intake: Oral 420 Output: Urine/Stool Mix 1 Other: # Voids 2 # Bowel Movements 0 Active Medications: Current Medications Acetaminophen (Tylenol) 650 mg PO Q6HR PRN PRN Reason: Pain (Mild 1-3) Stop: 06/03/19 07:56 Al Hydrox/Mg Hydrox/Simethicone (Maalox) 30 ml PO Q4HR PRN PRN Reason: GI DISTRESS Stop: 06/03/19 05:00 Aspirin (Ecotrin) 81 mg PO DAILY [facility] Stop: 06/03/19 08:59 Last Admin: 04/18/19 09:00 Dose: 81 mg Bisacodyl (Dulcolax 10 Mg Supp) 10 mg RC DAILY PRN PRN Reason: IF MIRALAX INEFFECTIVE Stop: 06/03/19 07:56 Calamine/Phenol (Calmoseptine) 1 appl TP QID PRN PRN Reason: Skin Irritation Stop: 06/14/19 14:26 Carvedilol (Coreg) 6.25 mg PO BID [facility] Stop: 06/03/19 08:59 Last Admin: 04/18/19 09:00 Dose: 6.25 mg Docusate Sodium (Colace) 100 mg PO BID [facility] Stop: 06/03/19 08:59 Last Admin: 04/18/19 09:00 Dose: 100 mg Escitalopram Oxalate (Lexapro) 10 mg PO HS [facility]; Protocol Stop: 06/12/19 20:59 Last Admin: 04/17/19 21:13 Dose: 10 mg Hydralazine HCl (Apresoline) 25 mg PO Q8HR PRN PRN Reason: HTN Stop: 06/03/19 07:56 Last Admin: 04/10/19 21:09 Dose: 25 mg Insulin Glargine (Lantus Insulin) 25 units SUBQ HS [facility] Stop: 06/03/19 20:59 Last Admin: 04/17/19 21:34 Dose: 25 units Insulin Human Lispro (Humalog Insulin Sliding Scale) 0 units SUBQ ACHS [facility]; Protocol Stop: 06/03/19 11:29 Last Admin: 04/18/19 11:34 Dose: 2 units Lactobacillus Rhamnosus (Culturelle 15b) 1 each PO DAILY [facility] Stop: 06/03/19 08:59 Last Admin: 04/18/19 09:01 Dose: 1 each Lorazepam (Ativan) 0.5 mg PO Q4HR PRN; Protocol PRN Reason: Anxiety Stop: 05/04/19 05:00 Losartan Potassium (Cozaar) 100 mg PO DAILY [facility] Stop: 06/03/19 08:59 Last Admin: 04/18/19 09:01 Dose: 100 mg Multivitamins/Vitamin C (Theragran) 1 tab PO DAILY [facility] Stop: 06/03/19 08:59 Last Admin: 04/18/19 09:00 Dose: 1 tab Nystatin (Nystop) 0 units TP BID [facility] Stop: 06/07/19 16:59 Last Admin: 04/18/19 09:00 Dose: 100,000 units Polyethylene Glycol (Miralax) 17 gm PO DAILY PRN PRN Reason: Constipation Stop: 06/03/19 07:56 Risperidone (Risperdal) 3 mg PO HS [facility] Stop: 06/13/19 20:59 Last Admin: 04/17/19 21:13 Dose: 3 mg Senna (Senna) 8.6 mg PO DAILY [facility] Stop: 06/03/19 08:59 Last Admin: 04/18/19 09:01 Dose: 8.6 mg Simethicone (Mylicon) 80 mg PO Q6HR PRN PRN Reason: Gas Stop: 06/03/19 07:56 Zolpidem Tartrate (Ambien) 5 mg PO HS PRN PRN Reason: Insomnia Stop: 06/03/19 05:00 General: weak, demented, NAD HEENT: NC/AT, PERRLA Neck: Supple, No JVD Lungs: other (no acute respiratory distress on RA) Cardiovascular: RRR Abdomen: soft, non-tender, non-distended Extremities: rash Neurological: no change Other physical findings: BLE discoloration Internal Medicine Assmt/Plan - Assessment Assessment: Schizophrenia HTN DM - Plan Plan: Continue current treatment plan. Continue current medications Continue to monitor VS Monitor Diet/Nutritional support. Psych management per Psychiatry. Pain Management. PT/OT prn Safety precaution, Fall precaution, frequent nursing round. Supportive care. Continue collaborating with consulting specialists, case management and nursing team Wound/Skin care as needed Nutritional Asmnt/Malnutr-PDOC - Dietary Evaluation Malnutrition Findings (Please click <Entered> for more info): Nutritional Asmnt/Malnutrition Start: 04/10/19 15: 40 Text: Status: Complete Freq: Protocol: Document 04/10/19 15:40 JASMIN (Rec: 04/10/19 15:43 JASMIN [id number]) Nutritional Asmnt/Malnutrition Patient General Information Nutritional Screening Moderate Risk Diagnosis Psychosis Pertinent Medical Hx/Surgical Hx HTN, DM Subjective Information Pt is a 74-year-old female admitted on 04/04 d/t increased agitation, hallucinations and paranoia. Pt is eating an estimated 60% of meals x 4 days Per Meal/Nutrition Activity Record. Dietary is currently providing an estimated 1900 kcals and 100 gm Pro, per Pt PO intake this is providing an estimated 1140 kcals and 60gm Pro to meet 80 % kcal and 100% Pro needs- adequate. Per wound care note (04/08), Cesar Score was 11 (has since improved to 13), Intrinsic factors that delay wound healing: Diabetes Mellitus. Extrinsic factors that delay wound healing: Decreased mobility. Anthropometrics HT: 56 WT: 218 LB (99.09 kg) ABW: 152 LB (69.09 kg) BMI: 35.28 (Obese, class II) GI/ Skin Integrity GI: WNL, Soft BM: 04/09 x1 I/O: 1360/1 (+1359) Skin Dryness, Redness RT/LT Toe Blackened, Buttocks skin tear, RT/LT Lower Legs rash and pink, Abdomen rash, pink, and reddened Cesar: 13 Diet Order: [facility], NCS, [place] Estimated Energy Needs: (Obese , ABW) 5676-9286 kcals (20-25 kcals/ kg) 55-70g Pro (0.8-1.0 g/kg) 1365-9241 ml (25-30 ml/kg) Current Diet Order/ Nutrition Support [facility], NCS, [place] Pertinent Medications Maalox (PRN), Dulcolax (PRN), Coreg, Colace, Lantus, INS-SS, Culturelle 15b, Cozaar, MOM ( PRN), Theragran Pertinent Labs POC Glucose (last 24 hours): 127, 198, 210, 277, 159 04/03: T Cholesterol 206, LDL 145, HDL 32, Alb 2.7, Glucose 267 A1c Pending Nutritional Hx/Data Height 5 ft 6 in Height (Calculated Centimeters) 167.6 Current Weight (lbs) 218 lb Weight (Calculated Kilograms) 98.9 Weight (Calculated Grams) 55704.1 [place] Body Weight 130 LB (59.09 kg) % [place] Body Weight 168 Body Mass Index (BMI) 35.2 Weight Status Obese GI Symptoms Last BM 04/09 x1 Skin Integrity/Comment: Dryness, Redness RT/LT Toe Blackened, Buttocks skin tear, RT/LT Lower Legs rash and pink, Abdomen rash, pink, and reddened Cesar: 13 Current %PO Fair (50-74%) Estimated Nutritional Goals BEE in Kcals: Adj wt of IBW Calories/Kcals/Kg 20-25 Kcals Calculated 0990-3944 Protein: Adj wt of IBW Protein g/k.8-1.0 Protein Calculated 55-70 Fluid: ml 6034-3209 ml (25-30 ml/kg) Nutritional Problem 2. Problem Problem Obesity Etiology r/t consistent energy overconsumption Signs/Symptoms: aeb BMI 35.28 (Obese, class II ). 1. Problem Problem Impaired nutrient utilization Etiology r/t endocrine dysfunction Signs/Symptoms: aeb Hx DM, labs (04/03 glucose 269), POC Glucose (last 24 hours): 127, 198, 210, 277, 159. Malnutrition Related to Morbid Obesity Malnutrition related to morbid obesity No Intervention/Recommendation Comments 1.[facility], [facility], [place] diet as tolerated. 2.Continue antihyperglycemic medications for glucose control per MD order. Expected Outcomes/Goals Expected Outcomes/Goals 1.PO intake to continue to meet >75% of estimated nutritional needs. 2.Monitor PO intake, wt, nutrition related labs to trend WNL, and skin integrity to trend WNL. 3.Gradual weight loss (0.5-1Lb / week), trending towards IBW. 4.F/U as moderate risk in 3-5 days, 04/13-04/15
--- NOTE | 2019-04-18 18:18 | Psych Progress Note ---
Psych Progress Note - Intro Date of Progress Note: 04/18/19 - Assessment Assessment: Patient interviewed, case discussed with staff, chart and records were reviewed. Dr. Okeefe is coming for Dr. Hills. Per staff reports that the patient has been psychotic and hallucinating. Tolerating Risperdal dose well. No side effects noted. The patient is poorly cooperative with the interview. She is attempting to sleep but awakes to her name but does not cooperate at all with the interview. No acute distress noted. - Vitals, I&O Vitals: Vital Signs - 24 hr 04/17/19 04/18/19 04/18/19 20:07 06:30 09:00 Temp 98.1 F 96.8 F HR 70 86 86 RR 20 19 BP 142/67 136/70 136/70 O2 Sat % 97 98 04/18/19 04/18/19 04/18/19 09:01 15:19 17:27 Temp 97.6 F HR 86 88 88 RR 20 BP 136/70 188/56 188/56 O2 Sat % 97 - Plan Plan: Continue current treatment plan and continue to monitor for behaviors. - Review of Relevant Data Review of Relevant Data: I have reviewed the following items and time windy (where applicable) has been applied. - Medications Current Medications: Current Medications Acetaminophen (Tylenol) 650 mg PO Q6HR PRN PRN Reason: Pain (Mild 1-3) Stop: 06/03/19 07:56 Al Hydrox/Mg Hydrox/Simethicone (Maalox) 30 ml PO Q4HR PRN PRN Reason: GI DISTRESS Stop: 06/03/19 05:00 Aspirin (Ecotrin) 81 mg PO DAILY [facility] Stop: 06/03/19 08:59 Last Admin: 04/18/19 09:00 Dose: 81 mg Bisacodyl (Dulcolax 10 Mg Supp) 10 mg RC DAILY PRN PRN Reason: IF MIRALAX INEFFECTIVE Stop: 06/03/19 07:56 Calamine/Phenol (Calmoseptine) 1 appl TP QID PRN PRN Reason: Skin Irritation Stop: 06/14/19 14:26 Carvedilol (Coreg) 6.25 mg PO BID [facility] Stop: 06/03/19 08:59 Last Admin: 04/18/19 17:27 Dose: 6.25 mg Docusate Sodium (Colace) 100 mg PO BID [facility] Stop: 06/03/19 08:59 Last Admin: 04/18/19 17:27 Dose: 100 mg Escitalopram Oxalate (Lexapro) 10 mg PO HS [facility]; Protocol Stop: 06/12/19 20:59 Last Admin: 04/17/19 21:13 Dose: 10 mg Hydralazine HCl (Apresoline) 25 mg PO Q8HR PRN PRN Reason: HTN Stop: 06/03/19 07:56 Last Admin: 04/10/19 21:09 Dose: 25 mg Insulin Glargine (Lantus Insulin) 25 units SUBQ HS [facility] Stop: 06/03/19 20:59 Last Admin: 04/17/19 21:34 Dose: 25 units Insulin Human Lispro (Humalog Insulin Sliding Scale) 0 units SUBQ [facility]; Protocol Stop: 06/03/19 11:29 Last Admin: 04/18/19 17:30 Dose: 2 units Lactobacillus Rhamnosus (Culturelle 15b) 1 each PO DAILY [facility] Stop: 06/03/19 08:59 Last Admin: 04/18/19 09:01 Dose: 1 each Lorazepam (Ativan) 0.5 mg PO Q4HR PRN; Protocol PRN Reason: Anxiety Stop: 05/04/19 05:00 Losartan Potassium (Cozaar) 100 mg PO DAILY [facility] Stop: 06/03/19 08:59 Last Admin: 04/18/19 09:01 Dose: 100 mg Multivitamins/Vitamin C (Theragran) 1 tab PO DAILY [facility] Stop: 06/03/19 08:59 Last Admin: 04/18/19 09:00 Dose: 1 tab Nystatin (Nystop) 0 units TP BID [facility] Stop: 06/07/19 16:59 Last Admin: 04/18/19 09:00 Dose: 100,000 units Polyethylene Glycol (Miralax) 17 gm PO DAILY PRN PRN Reason: Constipation Stop: 06/03/19 07:56 Risperidone (Risperdal) 3 mg PO [facility] Stop: 06/13/19 20:59 Last Admin: 04/17/19 21:13 Dose: 3 mg Senna (Senna) 8.6 mg PO DAILY [facility] Stop: 06/03/19 08:59 Last Admin: 04/18/19 09:01 Dose: 8.6 mg Simethicone (Mylicon) 80 mg PO Q6HR PRN PRN Reason: Gas Stop: 06/03/19 07:56 Zolpidem Tartrate (Ambien) 5 mg PO HS PRN PRN Reason: Insomnia Stop: 06/03/19 05:00
[2019-04-18] MEDS: Insulin Glargine 100 units/ml 10ml Vial SUBQ SCH (21:29)
--- NOTE | 2019-04-19 08:05 | Progress Notes ---
DATE: 04/19/2019 SUBJECTIVE: The patient in the hospital, still depressed, withdrawn, suspicious of others around her, has been here for some time, coming from assisted living, paranoid, hallucinating, disoriented. The patient refusing to speak with me this morning, sleeping but arousable, difficult to fully assess. Currently on dosing of Risperdal. Medications were noted. No overt side effects. Discussed with staff. Ongoing symptoms. We will continue inpatient monitoring. JOB# [id number]
[2019-04-19] MEDS: NYSTATIN 100000 UNITS/GM POWD TP SCH ×2 (09:43→16:34)
[2019-04-19] MEDS: Multivitamin Tab PO SCH (09:46)
[2019-04-19] MEDS: Lactobacillus Rhamnosus GG 15 Billion CFU CAP.SPRINK PO SCH (09:46)
--- NOTE | 2019-04-19 11:37 | Internal Medicine Prog Note ---
Internal Medicine Subjective - Subjective Patient is:: awake, verbal, agitated, confused Patient Complaints of:: other (History of Htn and Diabetes.) Per staff patient has:: no adverse event, no episodes of fall, other (selective with medications) Internal Medicine Objective - Results Recent Labs: Laboratory Last Values POC Glucose 183 MG/DL (70 - 105) H 04/19/19 05:09 - Physical Exam Vitals and I&O: Vital Signs Temp 96.9 F 04/19/19 06:09 Pulse 92 04/19/19 09:47 Resp 19 04/19/19 06:09 BP 110/59 04/19/19 09:47 Pulse Ox 99 04/19/19 06:09 Intake & Output 04/18/19 04/19/19 04/19/19 18:59 06:59 18:59 Intake Total 1000 420 Balance 1000 420 Intake: Oral 1000 420 Other: # Voids 2 Active Medications: Current Medications Acetaminophen (Tylenol) 650 mg PO Q6HR PRN PRN Reason: Pain (Mild 1-3) Stop: 06/03/19 07:56 Al Hydrox/Mg Hydrox/Simethicone (Maalox) 30 ml PO Q4HR PRN PRN Reason: GI DISTRESS Stop: 06/03/19 05:00 Aspirin (Ecotrin) 81 mg PO DAILY [facility] Stop: 06/03/19 08:59 Last Admin: 04/19/19 09:45 Dose: 81 mg Bisacodyl (Dulcolax 10 Mg Supp) 10 mg RC DAILY PRN PRN Reason: IF MIRALAX INEFFECTIVE Stop: 06/03/19 07:56 Calamine/Phenol (Calmoseptine) 1 appl TP QID PRN PRN Reason: Skin Irritation Stop: 06/14/19 14:26 Carvedilol (Coreg) 6.25 mg PO BID [facility] Stop: 06/03/19 08:59 Last Admin: 04/19/19 09:45 Dose: 6.25 mg Docusate Sodium (Colace) 100 mg PO BID [facility] Stop: 06/03/19 08:59 Last Admin: 04/19/19 09:46 Dose: 100 mg Escitalopram Oxalate (Lexapro) 10 mg PO HS [facility]; Protocol Stop: 06/12/19 20:59 Last Admin: 04/18/19 21:29 Dose: 10 mg Hydralazine HCl (Apresoline) 25 mg PO Q8HR PRN PRN Reason: HTN Stop: 06/03/19 07:56 Last Admin: 04/10/19 21:09 Dose: 25 mg Insulin Glargine (Lantus Insulin) 25 units SUBQ HS [facility] Stop: 06/03/19 20:59 Last Admin: 04/18/19 21:29 Dose: 25 units Insulin Human Lispro (Humalog Insulin Sliding Scale) 0 units SUBQ ACHS [facility]; Protocol Stop: 06/03/19 11:29 Last Admin: 04/18/19 21:30 Dose: 4 units Lactobacillus Rhamnosus (Culturelle 15b) 1 each PO DAILY [facility] Stop: 06/03/19 08:59 Last Admin: 04/19/19 09:46 Dose: 1 each Lorazepam (Ativan) 0.5 mg PO Q4HR PRN; Protocol PRN Reason: Anxiety Stop: 05/04/19 05:00 Losartan Potassium (Cozaar) 100 mg PO DAILY [facility] Stop: 06/03/19 08:59 Last Admin: 04/19/19 09:47 Dose: Not Given Multivitamins/Vitamin C (Theragran) 1 tab PO DAILY [facility] Stop: 06/03/19 08:59 Last Admin: 04/19/19 09:46 Dose: 1 tab Nystatin (Nystop) 0 units TP BID [facility] Stop: 06/07/19 16:59 Last Admin: 04/19/19 09:43 Dose: 100,000 units Polyethylene Glycol (Miralax) 17 gm PO DAILY PRN PRN Reason: Constipation Stop: 06/03/19 07:56 Risperidone (Risperdal) 3 mg PO HS [facility] Stop: 06/13/19 20:59 Last Admin: 04/18/19 21:31 Dose: 3 mg Senna (Senna) 8.6 mg PO DAILY [facility] Stop: 06/03/19 08:59 Last Admin: 04/19/19 09:46 Dose: 8.6 mg Simethicone (Mylicon) 80 mg PO Q6HR PRN PRN Reason: Gas Stop: 06/03/19 07:56 Zolpidem Tartrate (Ambien) 5 mg PO HS PRN PRN Reason: Insomnia Stop: 06/03/19 05:00 General: weak, demented, NAD HEENT: NC/AT, PERRLA Neck: Supple, No JVD Lungs: other (no acute respiratory distress on RA) Cardiovascular: RRR Abdomen: soft, non-tender, non-distended Extremities: rash Neurological: no change Other physical findings: R index toe scab R middle toe scab L big toe redness L index toe redness Bilateral buttock excoriation, redness RLQ red pen point dot L abd fold erythema BLE legs erythema Internal Medicine Assmt/Plan - Assessment Assessment: Schizophrenia HTN DM - Plan Plan: Continue current treatment plan. Continue current medications Continue to monitor VS Monitor Diet/Nutritional support. Psych management per Psychiatry. Pain Management. PT/OT prn Safety precaution, Fall precaution, frequent nursing round. Supportive care. Continue collaborating with consulting specialists, case management and nursing team Wound/Skin care as needed Nutritional Asmnt/Malnutr-PDOC - Dietary Evaluation Malnutrition Findings (Please click <Entered> for more info): Nutritional Asmnt/Malnutrition Start: 04/10/19 15: 40 Text: Status: Complete Freq: Protocol: Document 04/10/19 15:40 JASMIN (Rec: 04/10/19 15:43 [email or web address] [email or web address]) Nutritional Asmnt/Malnutrition Patient General Information Nutritional Screening Moderate Risk Diagnosis Psychosis Pertinent Medical Hx/Surgical Hx HTN, DM Subjective Information Pt is a 74-year-old female admitted on 04/04 d/t increased agitation, hallucinations and paranoia. Pt is eating an estimated 60% of meals x 4 days Per Meal/Nutrition Activity Record. Dietary is currently providing an estimated 1900 kcals and 100 gm Pro, per Pt PO intake this is providing an estimated 1140 kcals and 60gm Pro to meet 80 % kcal and 100% Pro needs- adequate. Per wound care note (04/08), Cesar Score was 11 (has since improved to 13), Intrinsic factors that delay wound healing: Diabetes Mellitus. Extrinsic factors that delay wound healing: Decreased mobility. Anthropometrics HT: 56 WT: 218 LB (99.09 kg) ABW: 152 LB (69.09 kg) BMI: 35.28 (Obese, class II) GI/ Skin Integrity GI: WNL, Soft BM: 04/09 x1 I/O: 1360/1 (+1359) Skin Dryness, Redness RT/LT Toe Blackened, Buttocks skin tear, RT/LT Lower Legs rash and pink, Abdomen rash, pink, and reddened Cesar: 13 Diet Order: [facility], N[facility], [place] Estimated Energy Needs: (Obese , ABW) 5735-9480 kcals (20-25 kcals/ kg) 55-70g Pro (0.8-1.0 g/kg) 8217-1643 ml (25-30 ml/kg) Current Diet Order/ Nutrition Support [facility], NCS, [place] Pertinent Medications Maalox (PRN), Dulcolax (PRN), Coreg, Colace, Lantus, INS-SS, Culturelle 15b, Cozaar, MOM ( PRN), Theragran Pertinent Labs POC Glucose (last 24 hours): 127, 198, 210, 277, 159 04/03: T Cholesterol 206, LDL 145, HDL 32, Alb 2.7, Glucose 267 A1c Pending Nutritional Hx/Data Height 5 ft 6 in Height (Calculated Centimeters) 167.6 Current Weight (lbs) 218 lb Weight (Calculated Kilograms) 98.9 Weight (Calculated Grams) 67576.1 [place] Body Weight 130 LB (59.09 kg) % [place] Body Weight 168 Body Mass Index (BMI) 35.2 Weight Status Obese GI Symptoms Last BM 04/09 x1 Skin Integrity/Comment: Dryness, Redness RT/LT Toe Blackened, Buttocks skin tear, RT/LT Lower Legs rash and pink, Abdomen rash, pink, and reddened Cesar: 13 Current %PO Fair (50-74%) Estimated Nutritional Goals BEE in Kcals: Adj wt of IBW Calories/Kcals/Kg 20-25 Kcals Calculated 6585-5354 Protein: Adj wt of IBW Protein g/k.8-1.0 Protein Calculated 55-70 Fluid: ml 6975-8499 ml (25-30 ml/kg) Nutritional Problem 2. Problem Problem Obesity Etiology r/t consistent energy overconsumption Signs/Symptoms: aeb BMI 35.28 (Obese, class II ). 1. Problem Problem Impaired nutrient utilization Etiology r/t endocrine dysfunction Signs/Symptoms: aeb Hx DM, labs (04/03 glucose 269), POC Glucose (last 24 hours): 127, 198, 210, 277, 159. Malnutrition Related to Morbid Obesity Malnutrition related to morbid obesity No Intervention/Recommendation Comments 1.Continue [facility], NCS, [place] diet as tolerated. 2.Continue antihyperglycemic medications for glucose control per MD order. Expected Outcomes/Goals Expected Outcomes/Goals 1.PO intake to continue to meet >75% of estimated nutritional needs. 2.Monitor PO intake, wt, nutrition related labs to trend WNL, and skin integrity to trend WNL. 3.Gradual weight loss (0.5-1Lb / week), trending towards IBW. 4.F/U as moderate risk in 3-5 days, 04/13-04/15
[2019-04-19] MEDS: INSULIN LISPRO SLIDING SCALE 100 UNITS/ML UNIT SUBQ SCH ×3 (12:16→21:30)
[2019-04-19] MEDS: Insulin Glargine 100 units/ml 10ml Vial SUBQ SCH (21:30)
[2019-04-20] MEDS: INSULIN LISPRO SLIDING SCALE 100 UNITS/ML UNIT SUBQ SCH ×4 (07:00→21:51)
[2019-04-20] MEDS: Lactobacillus Rhamnosus GG 15 Billion CFU CAP.SPRINK PO SCH (08:49)
[2019-04-20] MEDS: Multivitamin Tab PO SCH (08:49)
[2019-04-20] MEDS: NYSTATIN 100000 UNITS/GM POWD TP SCH ×2 (08:50→18:00)
--- NOTE | 2019-04-20 12:40 | Internal Medicine Prog Note ---
Internal Medicine Subjective - Subjective Service Date: 04/20/19 Patient seen and examined:: with staff Patient is:: awake, verbal, agitated, confused Patient Complaints of:: other (History of Htn and Diabetes.) Per staff patient has:: no adverse event, no episodes of fall, other (selective with medications) Internal Medicine Objective - Results Recent Labs: Laboratory Last Values POC Glucose 224 MG/DL (70 - 105) H 04/20/19 06:44 - Physical Exam Vitals and I&O: Vital Signs Temp 98 F 04/20/19 07:00 Pulse 94 04/20/19 08:50 Resp 19 04/20/19 07:00 BP 143/67 04/20/19 08:50 Pulse Ox 100 04/20/19 07:00 Intake & Output 04/19/19 04/20/19 04/20/19 18:59 06:59 18:59 Intake Total 240 Output Total 1 Balance 239 Intake: Oral 240 Output: Urine/Stool Mix 1 Other: # Voids 1 3 # Bowel Movements 0 Active Medications: Current Medications Acetaminophen (Tylenol) 650 mg PO Q6HR PRN PRN Reason: Pain (Mild 1-3) Stop: 06/03/19 07:56 Al Hydrox/Mg Hydrox/Simethicone (Maalox) 30 ml PO Q4HR PRN PRN Reason: GI DISTRESS Stop: 06/03/19 05:00 Aspirin (Ecotrin) 81 mg PO DAILY [facility] Stop: 06/03/19 08:59 Last Admin: 04/20/19 08:49 Dose: 81 mg Bisacodyl (Dulcolax 10 Mg Supp) 10 mg RC DAILY PRN PRN Reason: IF MIRALAX INEFFECTIVE Stop: 06/03/19 07:56 Calamine/Phenol (Calmoseptine) 1 appl TP QID PRN PRN Reason: Skin Irritation Stop: 06/14/19 14:26 Carvedilol (Coreg) 6.25 mg PO BID [facility] Stop: 06/03/19 08:59 Last Admin: 04/20/19 08:50 Dose: 6.25 mg Docusate Sodium (Colace) 100 mg PO BID [facility] Stop: 06/03/19 08:59 Last Admin: 04/20/19 08:49 Dose: 100 mg Escitalopram Oxalate (Lexapro) 10 mg PO HS [facility]; Protocol Stop: 06/12/19 20:59 Last Admin: 04/19/19 21:31 Dose: 10 mg Hydralazine HCl (Apresoline) 25 mg PO Q8HR PRN PRN Reason: HTN Stop: 06/03/19 07:56 Last Admin: 04/10/19 21:09 Dose: 25 mg Insulin Glargine (Lantus Insulin) 25 units SUBQ HS [facility] Stop: 06/03/19 20:59 Last Admin: 04/19/19 21:30 Dose: 25 units Insulin Human Lispro (Humalog Insulin Sliding Scale) 0 units SUBQ ACHS [facility]; Protocol Stop: 06/03/19 11:29 Last Admin: 04/20/19 07:00 Dose: 4 units Lactobacillus Rhamnosus (Culturelle 15b) 1 each PO DAILY [facility] Stop: 06/03/19 08:59 Last Admin: 04/20/19 08:49 Dose: 1 each Lorazepam (Ativan) 0.5 mg PO Q4HR PRN; Protocol PRN Reason: Anxiety Stop: 05/04/19 05:00 Losartan Potassium (Cozaar) 100 mg PO DAILY [facility] Stop: 06/03/19 08:59 Last Admin: 04/20/19 08:49 Dose: 100 mg Multivitamins/Vitamin C (Theragran) 1 tab PO DAILY [facility] Stop: 06/03/19 08:59 Last Admin: 04/20/19 08:49 Dose: 1 tab Nystatin (Nystop) 0 units TP BID [facility] Stop: 06/07/19 16:59 Last Admin: 04/20/19 08:50 Dose: 100,000 units Polyethylene Glycol (Miralax) 17 gm PO DAILY PRN PRN Reason: Constipation Stop: 06/03/19 07:56 Risperidone (Risperdal) 3 mg PO HS [facility] Stop: 06/13/19 20:59 Last Admin: 04/19/19 21:31 Dose: 3 mg Senna (Senna) 8.6 mg PO DAILY [facility] Stop: 06/03/19 08:59 Last Admin: 04/20/19 08:49 Dose: 8.6 mg Simethicone (Mylicon) 80 mg PO Q6HR PRN PRN Reason: Gas Stop: 06/03/19 07:56 Zolpidem Tartrate (Ambien) 5 mg PO HS PRN PRN Reason: Insomnia Stop: 06/03/19 05:00 Physical Exam: Patient needs close monitoring, patient is awake, withdrawn, confused and depressed. General: weak, demented, NAD HEENT: NC/AT, PERRLA Neck: Supple, No JVD Lungs: other (no acute respiratory distress on RA) Cardiovascular: RRR Abdomen: soft, non-tender, non-distended Extremities: rash Neurological: no change Internal Medicine Assmt/Plan - Assessment Assessment: UTI. Psychosis. Paranoia. Depression. Hypertension. Diabetes Mellitus. Schizophrenia. - Plan Plan: Psych management as per Psych. Continue present meds as directed. Accu-check daily, diabetic low sodium diet/nutritional support. Monitor vitals and labs. Fall precaution. Local skin care. Continue current treatment plan. Nutritional Asmnt/Malnutr-PDOC - Dietary Evaluation Malnutrition Findings (Please click <Entered> for more info): Nutritional Asmnt/Malnutrition Start: 04/10/19 15: 40 Text: Status: Complete Freq: Protocol: Document 04/10/19 15:40 JASMIN (Rec: 04/10/19 15:43 JASMIN [id number]) Nutritional Asmnt/Malnutrition Patient General Information Nutritional Screening Moderate Risk Diagnosis Psychosis Pertinent Medical Hx/Surgical Hx HTN, DM Subjective Information Pt is a 74-year-old female admitted on 04/04 d/t increased agitation, hallucinations and paranoia. Pt is eating an estimated 60% of meals x 4 days Per Meal/Nutrition Activity Record. Dietary is currently providing an estimated 1900 kcals and 100 gm Pro, per Pt PO intake this is providing an estimated 1140 kcals and 60gm Pro to meet 80 % kcal and 100% Pro needs- adequate. Per wound care note (04/08), Cesar Score was 11 (has since improved to 13), Intrinsic factors that delay wound healing: Diabetes Mellitus. Extrinsic factors that delay wound healing: Decreased mobility. Anthropometrics HT: 56 WT: 218 LB (99.09 kg) ABW: 152 LB (69.09 kg) BMI: 35.28 (Obese, class II) GI/ Skin Integrity GI: WNL, Soft BM: 04/09 x1 I/O: 1360/1 (+1359) Skin Dryness, Redness RT/LT Toe Blackened, Buttocks skin tear, RT/LT Lower Legs rash and pink, Abdomen rash, pink, and reddened Cesar: 13 Diet Order: [facility], [facility], [place] Estimated Energy Needs: (Obese , ABW) 2744-0580 kcals (20-25 kcals/ kg) 55-70g Pro (0.8-1.0 g/kg) 5876-2640 ml (25-30 ml/kg) Current Diet Order/ Nutrition Support [facility], [facility], [place] Pertinent Medications Maalox (PRN), Dulcolax (PRN), Coreg, Colace, Lantus, INS-SS, Culturelle 15b, Cozaar, MOM ( PRN), Theragran Pertinent Labs POC Glucose (last 24 hours): 127, 198, 210, 277, 159 04/03: T Cholesterol 206, LDL 145, HDL 32, Alb 2.7, Glucose 267 A1c Pending Nutritional Hx/Data Height 1.68 m Height (Calculated Centimeters) 167.6 Current Weight (lbs) 98.883 kg Weight (Calculated Kilograms) 98.9 Weight (Calculated Grams) 42094.1 [place] Body Weight 130 LB (59.09 kg) % [place] Body Weight 168 Body Mass Index (BMI) 35.2 Weight Status Obese GI Symptoms Last BM 04/09 x1 Skin Integrity/Comment: Dryness, Redness RT/LT Toe Blackened, Buttocks skin tear, RT/LT Lower Legs rash and pink, Abdomen rash, pink, and reddened Cesar: 13 Current %PO Fair (50-74%) Estimated Nutritional Goals BEE in Kcals: Adj wt of IBW Calories/Kcals/Kg 20-25 Kcals Calculated 6000-9949 Protein: Adj wt of IBW Protein g/k.8-1.0 Protein Calculated 55-70 Fluid: ml 1194-1488 ml (25-30 ml/kg) Nutritional Problem 2. Problem Problem Obesity Etiology r/t consistent energy overconsumption Signs/Symptoms: aeb BMI 35.28 (Obese, class II ). 1. Problem Problem Impaired nutrient utilization Etiology r/t endocrine dysfunction Signs/Symptoms: aeb Hx DM, labs (04/03 glucose 269), POC Glucose (last 24 hours): 127, 198, 210, 277, 159. Malnutrition Related to Morbid Obesity Malnutrition related to morbid obesity No Intervention/Recommendation Comments 1.Continue [facility], [facility], [place] diet as tolerated. 2.Continue antihyperglycemic medications for glucose control per MD order. Expected Outcomes/Goals Expected Outcomes/Goals 1.PO intake to continue to meet >75% of estimated nutritional needs. 2.Monitor PO intake, wt, nutrition related labs to trend WNL, and skin integrity to trend WNL. 3.Gradual weight loss (0.5-1Lb / week), trending towards IBW. 4.F/U as moderate risk in 3-5 days, 04/13-04/15
[2019-04-20 16:04] VITALS: BP 140/74
[2019-04-20] MEDS: Insulin Glargine 100 units/ml 10ml Vial SUBQ SCH (21:52)
[2019-04-21] MEDS: INSULIN LISPRO SLIDING SCALE 100 UNITS/ML UNIT SUBQ SCH ×2 (06:39→11:23)
--- NOTE | 2019-04-21 07:04 | Discharge Summary ---
DATE OF DISCHARGE: 04/21/2019 PHYSICIAN: Dr. Hills. FINAL DIAGNOSIS AND PRIMARY DIAGNOSIS: Depressive mood disorder, unspecified with psychotic features. SECONDARY DIAGNOSIS: Dementia, moderate, with psychotic features. REASON FOR HOSPITALIZATION: The patient was admitted to the hospital from [facility] because of increased paranoia and hallucinations and also because of agitation and depression. HOSPITAL COURSE: The patient continued to be in a depressed mood. The patient also was feeling hopeless and helpless. The patient was started on Lexapro and dose adjusted to 10 mg every day and also she was given Risperdal and dose adjusted to 3 mg at bedtime. Gradually, the patient's affect was brighter. The patient was less irritable and less agitated. The patient also was interacting more and she was less irritable and less agitated. The patient was discharged back to [facility] with plan to follow there. PHYSICAL EXAMINATION: The patient was basically within normal. The patient had no major medical problems while in the hospital. Blood workup was monitored closely by Dr. Schuster. AFTER DISCHARGE PLANS: The patient went back to [facility] with plans to follow her there. EXPECTED OUTCOME AFTER DISCHARGE: Fair if the patient continued to take her psychotropic medications and follow up with discharge plans. [facility]# [id number]
[2019-04-21] MEDS: Lactobacillus Rhamnosus GG 15 Billion CFU CAP.SPRINK PO SCH ×2 (08:15→08:42)
[2019-04-21] MEDS: Multivitamin Tab PO SCH ×2 (08:15→08:40)
[2019-04-21] MEDS: NYSTATIN 100000 UNITS/GM POWD TP SCH (08:44)
--- NOTE | 2019-04-21 09:52 | Progress Notes ---
DATE: SUBJECTIVE: Chart was reviewed and the patient interviewed. Also discussed the patient's condition with the staff and reviewed records and labs. The patient is still suspicious and paranoid. The patient also is still demanding and is still in irritable mood. She also still has severe mood swings. She also still continued to saying that nobody cares about her. She also is still depressed. Otherwise, the patient denies any intention to harm self or others. ASSESSMENT: The patient is still psychotic and agitated. TREATMENT PLAN: Continue to monitor behavior and condition closely. Also, continue adjusting psychotropic medications and work on behavioral modification. JOB# [id number]
--- NOTE | 2019-04-21 15:46 | Internal Medicine Prog Note ---
Internal Medicine Subjective - Subjective Service Date: 04/21/19 Patient is:: awake, verbal, agitated, confused Patient Complaints of:: other (History of Htn and Diabetes.) Per staff patient has:: no adverse event, no episodes of fall, other (selective with medications) Internal Medicine Objective - Results Recent Labs: Laboratory Last Values POC Glucose 173 MG/DL (70 - 105) H 04/21/19 11:10 - Physical Exam Vitals and I&O: Vital Signs Temp 82 F 04/21/19 14:43 Pulse 82 04/21/19 14:43 Resp 20 04/21/19 14:43 BP 147/76 04/21/19 14:43 Pulse Ox 98 04/21/19 14:43 Intake & Output 04/20/19 04/21/19 04/21/19 18:59 06:59 18:59 Intake Total 750 120 Balance 750 120 Intake: Oral 750 120 Other: # Voids 3 3 # Bowel Movements 0 0 Active Medications: Current Medications Acetaminophen (Tylenol) 650 mg PO Q6HR PRN PRN Reason: Pain (Mild 1-3) Stop: 06/03/19 07:56 Al Hydrox/Mg Hydrox/Simethicone (Maalox) 30 ml PO Q4HR PRN PRN Reason: GI DISTRESS Stop: 06/03/19 05:00 Aspirin (Ecotrin) 81 mg PO DAILY [facility] Stop: 06/03/19 08:59 Last Admin: 04/21/19 08:40 Dose: 81 mg Bisacodyl (Dulcolax 10 Mg Supp) 10 mg RC DAILY PRN PRN Reason: IF MIRALAX INEFFECTIVE Stop: 06/03/19 07:56 Calamine/Phenol (Calmoseptine) 1 appl TP QID PRN PRN Reason: Skin Irritation Stop: 06/14/19 14:26 Carvedilol (Coreg) 6.25 mg PO BID [facility] Stop: 06/03/19 08:59 Last Admin: 04/21/19 08:42 Dose: 6.25 mg Docusate Sodium (Colace) 100 mg PO BID [facility] Stop: 06/03/19 08:59 Last Admin: 04/21/19 08:41 Dose: 100 mg Escitalopram Oxalate (Lexapro) 10 mg PO [facility]; Protocol Stop: 06/12/19 20:59 Last Admin: 04/20/19 21:51 Dose: 10 mg Hydralazine HCl (Apresoline) 25 mg PO Q8HR PRN PRN Reason: HTN Stop: 06/03/19 07:56 Last Admin: 04/10/19 21:09 Dose: 25 mg Insulin Glargine (Lantus Insulin) 25 units SUBQ HS [facility] Stop: 06/03/19 20:59 Last Admin: 04/20/19 21:52 Dose: 25 units Insulin Human Lispro (Humalog Insulin Sliding Scale) 0 units SUBQ ACHS [facility]; Protocol Stop: 06/03/19 11:29 Last Admin: 04/21/19 11:23 Dose: 2 units Lactobacillus Rhamnosus (Culturelle 15b) 1 each PO DAILY [facility] Stop: 06/03/19 08:59 Last Admin: 04/21/19 08:15 Dose: Not Given Lorazepam (Ativan) 0.5 mg PO Q4HR PRN; Protocol PRN Reason: Anxiety Stop: 05/04/19 05:00 Losartan Potassium (Cozaar) 100 mg PO DAILY [facility] Stop: 06/03/19 08:59 Last Admin: 04/21/19 08:41 Dose: 100 mg Multivitamins/Vitamin C (Theragran) 1 tab PO DAILY [facility] Stop: 06/03/19 08:59 Last Admin: 04/21/19 08:15 Dose: Not Given Nystatin (Nystop) 0 units TP BID [facility] Stop: 06/07/19 16:59 Last Admin: 04/21/19 08:44 Dose: 100,000 units Polyethylene Glycol (Miralax) 17 gm PO DAILY PRN PRN Reason: Constipation Stop: 06/03/19 07:56 Risperidone (Risperdal) 3 mg PO HS [facility] Stop: 06/13/19 20:59 Last Admin: 04/20/19 21:52 Dose: 3 mg Senna (Senna) 8.6 mg PO DAILY [facility] Stop: 06/03/19 08:59 Last Admin: 04/21/19 08:42 Dose: 8.6 mg Simethicone (Mylicon) 80 mg PO Q6HR PRN PRN Reason: Gas Stop: 06/03/19 07:56 Zolpidem Tartrate (Ambien) 5 mg PO HS PRN PRN Reason: Insomnia Stop: 06/03/19 05:00 General: weak, demented, NAD HEENT: NC/AT, PERRLA Neck: Supple, No JVD Lungs: other (no acute respiratory distress on RA) Cardiovascular: RRR Abdomen: soft, non-tender, non-distended Extremities: rash Neurological: no change Internal Medicine Assmt/Plan - Assessment Assessment: Schizophrenia HTN DM - Plan Plan: Continue current treatment plan. Continue current medications Continue to monitor VS Monitor Diet/Nutritional support. Psych management per Psychiatry. Pain Management. PT/OT prn Safety precaution, Fall precaution, frequent nursing round. Supportive care. Continue collaborating with consulting specialists, case management and nursing team Wound/Skin care as needed Nutritional Asmnt/Malnutr-PDOC - Dietary Evaluation Malnutrition Findings (Please click <Entered> for more info): Nutritional Asmnt/Malnutrition Start: 04/10/19 15: 40 Text: Status: Complete Freq: Protocol: Document 04/10/19 15:40 JASMIN (Rec: 04/10/19 15:43 [email or web address] [id number]) Nutritional Asmnt/Malnutrition Patient General Information Nutritional Screening Moderate Risk Diagnosis Psychosis Pertinent Medical Hx/Surgical Hx HTN, DM Subjective Information Pt is a 74-year-old female admitted on 04/04 d/t increased agitation, hallucinations and paranoia. Pt is eating an estimated 60% of meals x 4 days Per Meal/Nutrition Activity Record. Dietary is currently providing an estimated 1900 kcals and 100 gm Pro, per Pt PO intake this is providing an estimated 1140 kcals and 60gm Pro to meet 80 % kcal and 100% Pro needs- adequate. Per wound care note (04/08), Cesar Score was 11 (has since improved to 13), Intrinsic factors that delay wound healing: Diabetes Mellitus. Extrinsic factors that delay wound healing: Decreased mobility. Anthropometrics HT: 56 WT: 218 LB (99.09 kg) ABW: 152 LB (69.09 kg) BMI: 35.28 (Obese, class II) GI/ Skin Integrity GI: WNL, Soft BM: 04/09 x1 I/O: 1360/1 (+1359) Skin Dryness, Redness RT/LT Toe Blackened, Buttocks skin tear, RT/LT Lower Legs rash and pink, Abdomen rash, pink, and reddened Cesar: 13 Diet Order: CCHO, NCS, FREDERICK Estimated Energy Needs: (Obese , ABW) 6732-8486 kcals (20-25 kcals/ kg) 55-70g Pro (0.8-1.0 g/kg) 9369-1387 ml (25-30 ml/kg) Current Diet Order/ Nutrition Support CCHO, NCS, FREDERICK Pertinent Medications Maalox (PRN), Dulcolax (PRN), Coreg, Colace, Lantus, INS-SS, Culturelle 15b, Cozaar, MOM ( PRN), Theragran Pertinent Labs POC Glucose (last 24 hours): 127, 198, 210, 277, 159 04/03: T Cholesterol 206, LDL 145, HDL 32, Alb 2.7, Glucose 267 A1c Pending Nutritional Hx/Data Height 5 ft 6 in Height (Calculated Centimeters) 167.6 Current Weight (lbs) 218 lb Weight (Calculated Kilograms) 98.9 Weight (Calculated Grams) 23615.1 [place] Body Weight 130 LB (59.09 kg) % [place] Body Weight 168 Body Mass Index (BMI) 35.2 Weight Status Obese GI Symptoms Last BM 04/09 x1 Skin Integrity/Comment: Dryness, Redness RT/LT Toe Blackened, Buttocks skin tear, RT/LT Lower Legs rash and pink, Abdomen rash, pink, and reddened Cesar: 13 Current %PO Fair (50-74%) Estimated Nutritional Goals BEE in Kcals: Adj wt of IBW Calories/Kcals/Kg 20-25 Kcals Calculated 6330-2183 Protein: Adj wt of IBW Protein g/k.8-1.0 Protein Calculated 55-70 Fluid: ml 2010-0328 ml (25-30 ml/kg) Nutritional Problem 2. Problem Problem Obesity Etiology r/t consistent energy overconsumption Signs/Symptoms: aeb BMI 35.28 (Obese, class II ). 1. Problem Problem Impaired nutrient utilization Etiology r/t endocrine dysfunction Signs/Symptoms: aeb Hx DM, labs (04/03 glucose 269), POC Glucose (last 24 hours): 127, 198, 210, 277, 159. Malnutrition Related to Morbid Obesity Malnutrition related to morbid obesity No Intervention/Recommendation Comments 1.Continue CCHO, NCS, FREDERICK diet as tolerated. 2.Continue antihyperglycemic medications for glucose control per MD order. Expected Outcomes/Goals Expected Outcomes/Goals 1.PO intake to continue to meet >75% of estimated nutritional needs. 2.Monitor PO intake, wt, nutrition related labs to trend WNL, and skin integrity to trend WNL. 3.Gradual weight loss (0.5-1Lb / week), trending towards IBW. 4.F/U as moderate risk in 3-5 days, 04/13-04/15
== END 2019-04-21 15:25 | DRG 885 ==
LOC: GERO 04-04 02:00
PROVIDERS: ADMIT Psychiatry & Neurology Psychiatry; ATTEND Psychiatry & Neurology Psychiatry
DX: F33.3 Major depressive disorder, recurrent, severe with psychotic symptoms (principal); I10 Essential (primary) hypertension; E11.9 Type 2 diabetes mellitus without complications; F03.90 Unspecified dementia, unspecified severity, without behavioral disturbance, psychotic disturbance, mood disturbance, and anxiety; Z79.899 Other long term (current) drug therapy; Z88.8 Allergy status to other drugs, medicaments and biological substances; Z91.041 Radiographic dye allergy status
CPT/HCPCS: 82948-90; J1815; Z7610